=== PATIENT | female | born 1975 | race American Indian/Alaskan Native ===

== ENCOUNTER 2020-08-24 15:55 | Emergency (ER) | payer SELFPAY ==
[2020-08-24 16:16] VITALS: BP 126/87
--- NOTE | 2020-08-24 17:31 | XRay Report ---
LEFT ANKLE 3 VIEWS INDICATION / CLINICAL INFORMATION: Twisted ankle after following down some steps today with left ankl e pain/swelling. COMPARISON: None available. FINDINGS: BONES / JOINT(S): There is an acute, oblique comminuted fracture of the distal fibular metadiaphysis. There is mild posterior displacement of the distal fracture fragment. There is also an acute fractur e of the distal tibia extending from the metaphysis distally into the posterior malleolus. There is a pproximately 3 mm of cortical step-off at the tibiotalar joint space. No subluxation. SOFT TISSUES: Moderate soft tissue swelling, more prominent over the lateral malleolus. ADDITIONAL FINDINGS: None. IMPRESSION: Acute fractures of the distal tibia and fibula. There is extension of the tibial fracture into the posterior malleolus with cortical step-off involving the tibiotalar joint. Signer Name: Marco Taylor MD Signed: 08/24/2020 5:26 PM Workstation Name: [id number]
--- NOTE | 2020-08-24 17:59 | Emergency Department Report ---
ED General Adult HPI - General Chief complaint: Extremity Injury, Lower Stated complaint: ANKLE INJURY/FELL Time Seen by Provider: 08/24/20 17:27 Source: patient Mode of arrival: Ambulatory Limitations: No Limitations - History of Present Illness Initial comments: 45-year-old female patient presents emergency department complaints of traumatic left ankle pain starting today. Patient states she was walking down the stairs at her apartment complex when she accidentally fell down 5 steps and twisted her ankle. There was no resulting head injury or loss of consciousness. Patient has been unable to bear weight since the fall. No history of prior injuries to the left ankle. Denies headache, neck pain, back pain, hip pain, paresthesias, numbness, skin color changes. Denies all other complaints at this time. - Related Data Previous Rx's Medication Instructions Recorded Last Taken Type Naproxen 500 mg PO BID #20 tablet 08/24/20 Unknown Rx oxyCODONE /ACETAMINOPHEN [Percocet 1 tab PO Q6HR PRN #10 tablet 08/24/20 Unknown Rx 5/325] Allergies Allergy/AdvReac Type Severity Reaction Status Date / Time No Known Allergies Allergy Unverified 08/24/20 16:12 ED Review of Systems ROS: Stated complaint: ANKLE INJURY/FELL Other details as noted in HPI Other: GENERAL: Negative for fever. CARDIOVASCULAR: Negative for chest pain. PULMONARY: Negative for shortness of breath. GASTROINTESTINAL: Negative for abdominal pain. MUSCULOSKELETAL: Negative for back pain. NEUROLOGICAL: Negative for headache. INTEGUMENTARY: Negative for rash. ED Past Medical Hx - Past Medical History Previous Medical History?: No - Surgical History Additional Surgical History: C SECTION - Social History Smoking Status: Never Smoker - Medications Home Medications: Home Medications Medication Instructions Recorded Confirmed Last Taken Type Naproxen 500 mg PO BID #20 tablet 08/24/20 Unknown Rx oxyCODONE /ACETAMINOPHEN [Percocet 1 tab PO Q6HR PRN #10 tablet 08/24/20 Unknown Rx 5/325] ED Physical Exam - General Limitations: No Limitations - Other Other exam information: General: Awake, appropriately interactive, no acute distress. Neck: Supple. Full range of motion intact. Cardiovascular: Normal peripheral perfusion. Pulmonary: No respiratory distress. Patient is speaking normally without use of accessory muscles. Skin: No apparent rashes or lesions. Neurological: No facial asymmetry. Speech is clear. Follows commands. Patient is alert and oriented. Musculoskeletal: Tenderness to palpation throughout the left ankle with significant soft tissue swelling throughout. No tenderness at the base of the 5th metatarsal. No plantar ecchymosis. Distal neurovascular and motor/sensory function is intact. Psych: Cooperative. Appropriate mood and affect. ED Course Vital Signs 08/24/20 16:12 Temperature 98 F Pulse Rate 91 H Respiratory 20 Rate Blood Pressure 126/87 O2 Sat by Pulse 99 Oximetry - Orthopedic Splinting/Casting Injury #1 Side: left Lower Extremity Injury Location: ankle Lower Extremity Immobilizer: posterior splint Other Orthopedic Equipment: crutches Additional Comments: repeat neurovascular exam is intact ED Medical Decision Making - Radiology Data [facility] [address] [place] [address] XRay Report Signed Patient: CALVIN ROCHE MR#: [id number] : 1975 Acct:[id number] Age/Sex: 45 / F ADM Date: 08/24/20 Loc: ED Attending Dr: Ordering Physician: FLACO PAN MD Date of Service: 08/24/20 Procedure(s): XR ankle 3+V LT Accession Number(s): [id number] cc: FLACO PAN MD Fluoro Time In Minutes: LEFT ANKLE 3 VIEWS INDICATION / CLINICAL INFORMATION: Twisted ankle after following down some steps today with left ankle pain/swelling. COMPARISON: None available. FINDINGS: BONES / JOINT(S): There is an acute, oblique comminuted fracture of the distal fibular metadiaphysis. There is mild posterior displacement of the distal fracture fragment. There is also an acute fracture of the distal tibia extending from the metaphysis distally into the posterior malleolus. There is approximately 3 mm of cortical step-off at the tibiotalar joint space. No subluxation. SOFT TISSUES: Moderate soft tissue swelling, more prominent over the lateral malleolus. ADDITIONAL FINDINGS: None. IMPRESSION: Acute fractures of the distal tibia and fibula. There is extension of the tibial fracture into the posterior malleolus with cortical step-off involving the tibiotalar joint. Signer Name: Eric Taylor MD Signed: 08/24/2020 5:26 PM Workstation Name: [id number] Transcribed By: RT Dictated By: Eric Taylor MD Electronically Authenticated By: Eric Taylor MD Signed Date/Time: 08/24/201725 DD/ 23 TD/TT: - Medical Decision Making Differential diagnosis including but not limited to: sprain, strain, fracture, contusion, dislocation On reevaluation, patient remains stable. Repeat neurovascular exam remains intact. X-rays show acute oblique comminuted fracture of the distal fibular metaphysis with mild posterior displacement of the distal fracture fragment as well as an acute fracture of the distal tibia extending from the metaphysis into the posterior malleolus with approximately 3 mm of cortical step-off at the tibiotalar joint space. Case discussed with Dr. Krishnan, orthopedics, who recommended application of posterior ankle splint and close outpatient follow- up. No clinical indication for emergent reduction or operative intervention. Patient will be discharged home with crutches and appropriate analgesics. Patient expressed understanding and is agreeable to plan of care. RICE precautions discussed. Strict return precautions provided. Repeat exam is unremarkable and benign. History, exam, diagnostic testing, and current condition do not suggest worrisome pathology to warrant further testing, continued ED treatment, admission, or surgical evaluation at this point. Given the low probability of a significant medical illness, it would be more likely to result in harm than benefit to perform further testing at this stage. Discussed findings, presumptive diagnosis, need for follow-up and specific signs/symptoms that should prompt immediate return to the emergency department. Instructions were explained in detail to the patient in addition to giving written discharge information. Patient expressed understanding and was given the opportunity to ask questions, all of which were satisfactorily answered prior to discharge home. Case discussed with Dr. Cuevas, attending emergency physician, who agrees with diagnostic work-up/plan of care. Critical care attestation.: If time is entered above; I have spent that time in minutes in the direct care of this critically ill patient, excluding procedure time. ED Disposition Clinical Impression: Bimalleolar fracture Qualifiers: Encounter type: initial encounter Fracture type: closed Laterality: left Qualified Code(s): S82.842A - Displaced bimalleolar fracture of left lower leg, initial encounter for closed fracture Disposition: DC-01 TO HOME OR SELFCARE Is pt being admited?: No Does the pt Need Aspirin: No Condition: Stable Instructions: Ankle Fracture Additional Instructions: [place] Tylenol cada 4 horas segn sea necesario para el dolor. [place] naproxeno dos veces al da con alimentos segn sea necesario para el dolor. Si estos medicamentos no son suficientes para controlar dawkins dolor, tome Percocet con alimentos segn las indicaciones. No conduzca ni maneje maquinaria mientras est tomando leslie medicamento. No consuma alcohol mientras zachary leslie medicamento. Use la frula segn las indicaciones. Use muletas segn sea necesario. Rossi un seguimiento con el Dr. Krishnan, ortopedia, esta semana. Llame el shakira para programar jet martin. Consulte la informacin de referencia a continuacin. Regrese al departamento de emergencias de inmediato si los sntomas son nuevos o si empeoran. Especficamente, regrese al departamento de emergencias inmediatamente si aumenta el dolor, empeora la hinchazn, entumecimiento, hormigueo, cambios en el color de la piel o cualquier otra inquietud. Prescriptions: Naproxen 500 mg PO BID #20 tablet oxyCODONE /ACETAMINOPHEN [Percocet 5/325] 1 tab PO Q6HR PRN #10 tablet PRN Reason: Pain Referrals: ERIC KRISHNAN MD [Staff Physician] - 3-5 Days Time of Disposition: 18:56
== END 2020-08-24 20:00 | disposition home or self-care (01) ==
LOC: ED 15:55
DX: S82.842A Displaced bimalleolar fracture of left lower leg, initial encounter for closed fracture (principal); Z98.890 Other specified postprocedural states; Z79.899 Other long term (current) drug therapy; X50.1XXA Overexertion from prolonged static or awkward postures, initial encounter; Y93.89 Activity, other specified; Y92.89 Other specified places as the place of occurrence of the external cause; Y99.8 Other external cause status

== ENCOUNTER 2020-09-03 05:26 | Emergency (ER) | payer OTHER ==
[2020-09-03 06:14] LABS: Hematocrit 37.8 % (30.3-42.9); Hemoglobin 13.1 gm/dl (10.1-14.3); Mean Corpuscular HGB Conc 35 % (30-34); Mean Corpuscular Volume 90 fl (79-97); Platelet Count 329 K/mm3 (140-440); Red Blood Count 4.21 M/mm3 (3.65-5.03); Red Cell Distribution Width 13.4 % (13.2-15.2)
[2020-09-03 06:26] LABS: Blood Urea Nitrogen 13 mg/dL (7-17); Calcium 9.3 mg/dL (8.4-10.2); Hemolysis Index 3
[2020-09-03 06:27] LABS: Basophils % (Auto) 0.1 % (0.0-1.8); Eosinophils # (Auto) 0.1 K/mm3 (0.0-0.4); Eosinophils % (Auto) 0.5 % (0.0-4.3); Lymphocytes % (Auto) 16.6 % (13.4-35.0); Monocytes # (Auto) 0.5 K/mm3 (0.0-0.8); Monocytes % (Auto) 4.3 % (0.0-7.3)
[2020-09-03 06:32] LABS: BUN/Creatinine Ratio 26
--- NOTE | 2020-09-03 07:18 | Cat Scan Report ---
CT abdomen pelvis wo con INDICATION / CLINICAL INFORMATION: Patient complains of epigastric abdominal pain.. TECHNIQUE: Axial CT imaging of abdomen and pelvis was obtained without contrast. Coronal and sagittal reformatte d imaging obtained and reviewed. All CT scans at this location are performed using CT dose reduction for ALARA by means of automated exposure control. COMPARISON: None available. FINDINGS: CT abdomen without contrast demonstrates a small cyst in the left lobe of the liver. The liver is oth erwise unremarkable. Spleen, pancreas, kidneys, and adrenal glands are unremarkable. No intrarenal ca lculi or hydronephrosis present. Gallbladder is present and without visible abnormality. CT pelvis without contrast demonstrates mildly enlarged lobulated uterus most likely related to uteri ne fibroids. No adnexal mass. Small amount of free fluid is present in the posterior cul-de-sac. A no rmal appendix is present in the lower to mid abdomen centrally. Moderate amount of stool is present t hroughout the colon. GI tract is otherwise unremarkable. Visualized lung bases are clear. No acute significant osseous abnormality noted. IMPRESSION: 1. No acute finding within the abdomen or pelvis. 2. Moderate amount retained stool throughout the colon suggesting constipation. 3. Mildly enlarged lobulated uterus most likely due to uterine fibroids. Signer Name: Minda Rousseau MD Signed: 09/03/2020 7:13 AM Workstation Name: [id number]
[2020-09-03] MEDS ORDERED: LIDOCAINE VISCOUS 2% 15 ML ORAL LIQD PO ONE (07:46)
[2020-09-03] MEDS ORDERED: ALUM-MAG HYDROXIDE-SIMETHICONE 200-200-20MG/5ML ORAL LIQD 30 ML PO ONE (07:46)
--- NOTE | 2020-09-03 07:55 | Emergency Department Report ---
ED Abdominal Pain HPI - General Chief Complaint: Abdominal Pain Stated Complaint: ABD PAIN Time Seen by Provider: 09/03/20 07:32 Source: patient Mode of arrival: Ambulatory Limitations: Language Barrier - History of Present Illness Initial Comments: 45-year-old female presents to ED with complaint of abdominal pain since last night. Patient states pain is located in the epigastric area. She believes it is related to her gallstones. Patient states she was diagnosed with gallstones approximately 1 year ago. States pain is burning in nature. She believes it is because she ate very late last night. Patient reports nausea, no vomiting, no fever or diarrhea. Pain is nonradiating. MD Complaint: abdominal pain -: Last night Location: epigastric Radiation: none Migration to: no migration Severity: moderate Quality: burning Consistency: constant Improves With: nothing Worsens With: eating Associated Symptoms: nausea. denies: vomiting, diarrhea, fever, constipation - Related Data Previous Rx's Medication Instructions Recorded Last Taken Type oxyCODONE /ACETAMINOPHEN [Percocet 1 tab PO Q6HR PRN #10 tablet 08/24/20 Unknown Rx 5/325] Pantoprazole [Protonix TAB] 20 mg PO QDAY #30 tablet. 09/03/20 Unknown Rx Allergies Allergy/AdvReac Type Severity Reaction Status Date / Time No Known Allergies Allergy Verified 08/31/20 15:25 ED Review of Systems ROS: Stated complaint: ABD PAIN Other details as noted in HPI Comment: All other systems reviewed and negative Constitutional: denies: chills, fever Gastrointestinal: abdominal pain, nausea. denies: vomiting, diarrhea ED Past Medical Hx - Past Medical History Previous Medical History?: No Hx Hypertension: No Hx Headaches / Migraines: Yes (HX MIGRAINES - NOT RECENT) Additional medical history: galbladder - Surgical History Past Surgical History?: No Additional Surgical History: C SECTION - Social History Smoking Status: Never Smoker Substance Use Type: None - Medications Home Medications: Home Medications Medication Instructions Recorded Confirmed Last Taken Type oxyCODONE /ACETAMINOPHEN [Percocet 1 tab PO Q6HR PRN #10 tablet 08/24/20 08/31/20 Unknown Rx 5/325] Pantoprazole [Protonix TAB] 20 mg PO QDAY #30 tablet. 09/03/20 Unknown Rx ED Physical Exam - General Limitations: Language Barrier General appearance: alert, in no apparent distress - Head Head exam: Present: atraumatic, normocephalic - Eye Eye exam: Present: normal appearance, EOMI - ENT ENT exam: Present: mucous membranes moist - Neck Neck exam: Present: normal inspection - Respiratory Respiratory exam: Present: normal lung sounds bilaterally. Absent: respiratory distress - Cardiovascular Cardiovascular Exam: Present: regular rate, normal rhythm - GI/Abdominal GI/Abdominal exam: Present: soft, tenderness (Mild epigastric). Absent: distended - Extremities Exam Extremities exam: Present: normal inspection - Neurological Exam Neurological exam: Present: alert, oriented X3 - Psychiatric Psychiatric exam: Present: normal affect, normal mood - Skin Skin exam: Present: warm, dry, intact, normal color ED Course Vital Signs 09/03/20 09/03/20 05:53 09:06 Temperature 98.0 F Pulse Rate 82 79 Respiratory 16 Rate Blood Pressure 134/77 Blood Pressure 125/72 [Right] O2 Sat by Pulse 100 Oximetry ED Medical Decision Making - Lab Data Result diagrams: 09/03/20 05:55 09/03/20 05:55 - Radiology Data Radiology results: report reviewed, image reviewed - Medical Decision Making 45-year-old female, history of gallstones, presents to ED with epigastric pain. Labs are unremarkable. CT scan shows no evidence of gallstones. Constipation and fibroids present. Vital signs stable. Patient reports relief with GI cocktail that was given. Will discharge at this time. Outpatient follow-up with GI advised, return precautions given. - Differential Diagnosis Gallstones, pancreatitis, GERD Critical care attestation.: If time is entered above; I have spent that time in minutes in the direct care of this critically ill patient, excluding procedure time. ED Disposition Clinical Impression: Abdominal pain, epigastric Disposition: DC-01 TO HOME OR SELFCARE Is pt being admited?: No Condition: Stable Instructions: Heartburn, [id number], Food Choices for Gastroesophageal Reflux Disease, Adult, Abdominal Pain, Adult, [id number], Abdominal Pain (ED) Prescriptions: Pantoprazole [Protonix TAB] 20 mg PO QDAY #30 tablet. Referrals: PRIMARY CARE, [Primary Care Provider] - 3-5 Days [facility] [Provider Group] - 3-5 Days [facility] [Provider Group] - 3-5 Days Time of Disposition: 08:43 Print Language: FILIPINO
[2020-09-03 09:07] VITALS: BP 125/72
[2020-09-04] MEDS ORDERED: LIDOCAINE MPF (2%) 20 MG/1 ML VIAL 5 ML ONE (13:09)
[2020-09-04] MEDS ORDERED: propofoL 200 MG/20 ML VIAL IV ONE (13:09)
[2020-09-04] MEDS ORDERED: ONDANSETRON 4 MG/2 ML INJ ONE (14:10)
== END 2020-09-03 09:07 | disposition home or self-care (01) ==
LOC: ED 05:26
DX: R10.13 Epigastric pain (principal); G43.909 Migraine, unspecified, not intractable, without status migrainosus; Z98.890 Other specified postprocedural states; Z79.899 Other long term (current) drug therapy
CPT/HCPCS: 36415; 74176; 80048; 82150; 83690; 84703; 85007; 85025; J2405; J2704

== ENCOUNTER 2020-09-04 10:33 | Day surgery (SDC) | payer OTHER ==
[~2020-09-04 10:33] MED LIST: ACETAMINOPHEN 500 MG TAB PO SCH; CELECOXIB 200 MG CAP PO NR; GABAPENTIN 300 MG CAP PO NR; LACTATED RINGERS 1,000 ML IV SCH; MIDAZOLAM 2 MG/2 ML INJ IV NR; ceFAZolin/STERILE WATER 2 GM/20 ML SYRINGE IV NR
--- NOTE | 2020-09-04 11:24 | Anesthesia Day of Surgery ---
Anesthesia Day of Surgery - Day of Surgery Patient Examined: Yes Patient H&P Reviewed: Yes Patient is NPO: Yes
--- NOTE | 2020-09-04 11:24 | Anesthesia Consultation ---
Anesthesia Consult and Med Hx Date of service: 09/04/20 - Airway Anesthetic Teeth Evaluation: Good ROM Head & Neck: Adequate Mental/Hyoid Distance: Adequate Mallampati Class: Class III Intubation Access Assessment: Possibly Difficult - Pre-Operative Health Status ASA Pre-Surgery Classification: ASA1 Proposed Anesthetic Plan: General Nerve Block: adductor canal + poplitea - Pulmonary Hx Smoking: No Hx Respiratory Symptoms: No (COVID + 05/2020; resolved) Hx Sleep Apnea: No (LUCA PRE SCREEN NEGATIVE) - Cardiovascular System Hx Hypertension: No - Central Nervous System CVA: No - Endocrine Hx Renal Disease: No Hx Liver Disease: No Hx Insulin Dependent Diabetes: No Hx Non-Insulin Dependent Diabetes: No Hx Thyroid Disease: No - Other Systems Hx Obesity: Yes (BMI 32)
[2020-09-04] MEDS ORDERED: ONDANSETRON 4 MG/2 ML INJ IV PRN (11:30)
[2020-09-04] MEDS: fentaNYL 100 MCG/2 ML INJ IV PRN ×2 (11:43→12:43)
[2020-09-04] MEDS ORDERED: BUPIVACAINE/PF (0.25%) 2.5 MG/ML 30 ML VIAL INFILTRATI ONE (11:53)
[2020-09-04] MEDS ORDERED: SODIUM CHLORIDE 0.9% IRR 1,500 ML BOTTLE IR ONE (13:46)
--- NOTE | 2020-09-04 14:29 | Procedure Note ---
Date of procedure: 09/04/20 Pre-op diagnosis: Displaced left distal fibular fracture Post-op diagnosis: same Procedure: Open reduction internal fixation [left] distal fibula Procedure The patient was brought to the OR placing our table as a supine position following induction of ratio and anesthesia patient's [left] lower extremity was prepped and draped in the usual sterile manner a timeout procedure was done to identify the patient and the correct operative site The leg was exsanguinated followed by inflation of the pneumatic tourniquet to 300 mm Hg. a lateral incision was made along the distal fibula distally and down sharply through skin and subcutaneous down to periosteum the fracture site was identified following manipulation of the fracture fragments a bone clamp was used to stabilize. A 6-hole one third semitubular plate was was applied to the distal fibula under C-arm visualization the leg was stabilize with screws of various lengths including cortical and cancellus screws AP and lateral views were obtained on the table showed good reduction of the fracture and placement of the hardware next the wound was copiously irrigated with saline solution and was closed in a standard routine fashion for subcutaneous dressings were applied as well as a well-padded posterior mold patient tolerated the procedure complications Anesthesia: MAC, regional Surgeon: ERIC GARCIA Estimated blood loss: minimal Pathology: none Condition: stable Disposition: PACU
[2020-09-04] MEDS: HYDROmorphone 1 MG/1 ML INJ IV PRN ×2 (14:35→14:45)
--- NOTE | 2020-09-04 16:08 | Post Anesthesia Evaluation ---
- Post Anesthesia Evaluation Patient Participated: Yes Airway Patent: Yes Stable Respiratory Function: Yes Nausea/Vomiting: No Temp > 96.8F: Yes Pain Manageable: Yes Adequeate Hydration: Yes Anesthesia Complications: No Block Receding Appropriately: Yes
[2020-09-04 16:48] VITALS: BP 130/70
--- NOTE | 2020-09-08 07:51 | XRay Report ---
LEFT ANKLE 2 VIEWS INDICATION: LT ANKLE FX. COMPARISON: None. IMPRESSION: 0.1 minutes of fluoroscopy time was provided by radiology during open reduction and inte rnal fixation of a distal left fibular fracture. 2 fluoroscopic images are presented demonstrating i nternal fixation with good alignment. No joint pathology is appreciated. Please correlate with the pr ocedural report as needed. Signer Name: Rachid Thakkar Jr, MD Signed: 09/08/2020 7:47 AM Workstation Name: [id number]
== END 2020-09-04 15:50 | disposition home or self-care (01) ==
LOC: OR 10:33
PROVIDERS: ATTEND Orthopaedic Surgery
DX: S82.832A Other fracture of upper and lower end of left fibula, initial encounter for closed fracture (principal); Z20.822 Contact with and (suspected) exposure to COVID-19; Z79.899 Other long term (current) drug therapy; G43.909 Migraine, unspecified, not intractable, without status migrainosus; E66.9 Obesity, unspecified; Z98.51 Tubal ligation status; Z98.890 Other specified postprocedural states; Z68.32 Body mass index [BMI] 32.0-32.9, adult; X58.XXXA Exposure to other specified factors, initial encounter; Y93.89 Activity, other specified; Y92.89 Other specified places as the place of occurrence of the external cause; Y99.8 Other external cause status
CPT/HCPCS: 27792; 36415; 64450; 73600; 84703; C1713; J0690; J1170; J2250; J3010; J7120; U0003

== ENCOUNTER 2020-11-20 11:54 | Outpatient (CLI) | payer OTHER ==
--- NOTE | 2020-11-20 14:53 | XRay Report ---
LEFT ANKLE 3 VIEW(S) INDICATION / CLINICAL INFORMATION: LEFT ANKLE PAIN COMPARISON: Left ankle radiographs 08/24/2020 FINDINGS: BONES / JOINT(S): Postoperative changes from plate and screw fixation of the distal fibula are demons trated. There appears to be appropriate union of the fibular fracture fragments compared to reference from July 2020. There is a persistent fracture of the posterior malleolus, which is minimally displac ed. There is a persistent cortical step off at the posterior tibiotalar joint. If clinically warrante d, CT of the ankle could further evaluate for delayed union. SOFT TISSUES: No significant abnormality. ADDITIONAL FINDINGS: None. Signer Name: Quirino Robins MD Signed: 11/20/2020 2:49 PM Workstation Name: [id number]
== END 2020-11-20 11:55 | disposition home or self-care (01) ==
LOC: XRAY 11:54
PROVIDERS: ATTEND Orthopaedic Surgery
DX: S82.832A Other fracture of upper and lower end of left fibula, initial encounter for closed fracture (principal); X58.XXXA Exposure to other specified factors, initial encounter; Y93.89 Activity, other specified; Y92.89 Other specified places as the place of occurrence of the external cause; Y99.8 Other external cause status

== ENCOUNTER 2020-12-14 23:31 | Emergency (ER) | payer OTHER ==
[2020-12-15] MEDS ORDERED: ONDANSETRON 4 MG/2 ML INJ IV ONE (02:01)
[2020-12-15] MEDS ORDERED: MORPHINE 4 MG/1 ML INJ IV ONE (02:01)
[2020-12-15] MEDS ORDERED: SODIUM CHLORIDE 0.9% 1000 ML 1,000 ML IV ONE (02:01)
--- NOTE | 2020-12-15 02:05 | Emergency Department Report ---
ED Abdominal Pain HPI - General Chief Complaint: Abdominal Pain Stated Complaint: SHARP ABD PAINS Time Seen by Provider: 12/15/20 02:01 Source: patient Mode of arrival: Ambulatory Limitations: No Limitations - History of Present Illness Initial Comments: Patient is 45 years old female with no significant past medical history. Patient presented to the ER complaining of epigastric abdominal pain started approximately 4 hours ago associated with nausea and vomiting. Patient described her pain as sharp. Patient rated her pain as 5 out of 10. Patient denied any diarrhea. No fever or chills. Patient denied any chest pain or shortness of breath. MD Complaint: abdominal pain -: hour(s) (4) Location: RLQ, epigastric Radiation: none Migration to: no migration Severity scale (0 -10): 5 Quality: sharp - Related Data Previous Rx's Medication Instructions Recorded Last Taken Type oxyCODONE /ACETAMINOPHEN [Percocet 1 tab PO Q6HR PRN #10 tablet 08/24/20 Unknown Rx 5/325] Pantoprazole [Protonix TAB] 20 mg PO QDAY #30 tablet. 09/03/20 Unknown Rx oxyCODONE /ACETAMINOPHEN [Percocet 1 tab PO Q6HR PRN #28 tablet 09/04/20 Unknown Rx 5/325] oxyCODONE /ACETAMINOPHEN [Percocet 1 tab PO Q6HR PRN #30 tablet 09/04/20 Unknown Rx 5/325] Allergies Allergy/AdvReac Type Severity Reaction Status Date / Time No Known Allergies Allergy Verified 08/31/20 15:25 ED Review of Systems ROS: Stated complaint: SHARP ABD PAINS Other details as noted in HPI Comment: All other systems reviewed and negative Constitutional: denies: chills, fever Cardiovascular: denies: chest pain, palpitations Gastrointestinal: abdominal pain, nausea, vomiting. denies: diarrhea, constipation, hematemesis, melena, hematochezia Musculoskeletal: denies: back pain Neurological: denies: headache, weakness, numbness, paresthesias, confusion, abnormal gait ED Past Medical Hx - Past Medical History Previous Medical History?: Yes Hx Hypertension: No Hx Liver Disease: No Hx Renal Disease: No Hx Headaches / Migraines: Yes (HX MIGRAINES - NOT RECENT) Additional medical history: galbladder - Surgical History Past Surgical History?: Yes Additional Surgical History: C SECTION Left ankle - Social History Smoking Status: Never Smoker Substance Use Type: None - Medications Home Medications: Home Medications Medication Instructions Recorded Confirmed Last Taken Type oxyCODONE /ACETAMINOPHEN [Percocet 1 tab PO Q6HR PRN #10 tablet 08/24/20 06/0 10/14 Unknown Rx 5/325] Pantoprazole [Protonix TAB] 20 mg PO QDAY #30 tablet. 09/03/20 Unknown Rx oxyCODONE /ACETAMINOPHEN [Percocet 1 tab PO Q6HR PRN #28 tablet 09/04/20 Unknown Rx 5/325] oxyCODONE /ACETAMINOPHEN [Percocet 1 tab PO Q6HR PRN #30 tablet 09/04/20 Unknown Rx 5/325] ED Physical Exam - General Limitations: No Limitations General appearance: alert, in no apparent distress - Head Head exam: Present: atraumatic, normocephalic, normal inspection - ENT ENT exam: Present: mucous membranes dry - Neck Neck exam: Present: normal inspection, full ROM. Absent: tenderness, meningismus - Respiratory Respiratory exam: Present: normal lung sounds bilaterally - Cardiovascular Cardiovascular Exam: Present: regular rate, normal rhythm, normal heart sounds - GI/Abdominal GI/Abdominal exam: Present: soft, tenderness, normal bowel sounds. Absent: distended, guarding, rebound, rigid, organomegaly, mass, bruit, pulsatile mass, hernia - Extremities Exam Extremities exam: Present: normal inspection, full ROM, normal capillary refill. Absent: tenderness, pedal edema, joint swelling, calf tenderness - Back Exam Back exam: Present: normal inspection, full ROM. Absent: CVA tenderness (R), CVA tenderness (L) - Neurological Exam Neurological exam: Present: alert, oriented X3, CN II-XII intact, normal gait, reflexes normal. Absent: motor sensory deficit - Psychiatric Psychiatric exam: Present: normal mood - Skin Skin exam: Present: warm, intact, normal color ED Course Vital Signs 12/15/20 12/15/20 12/15/20 01:16 02:28 02:30 Temperature 98.1 F Pulse Rate 71 66 Respiratory 13 18 Rate Blood Pressure 122/75 128/70 Blood Pressure [Left] O2 Sat by Pulse 100 100 100 Oximetry 12/15/20 12/15/20 12/15/20 02:31 03:00 03:31 Temperature Pulse Rate 68 71 Respiratory 15 14 Rate Blood Pressure 128/70 115/66 Blood Pressure 128/70 [Left] O2 Sat by Pulse 100 100 100 Oximetry 12/15/20 12/15/20 12/15/20 04:01 04:31 05:01 Temperature Pulse Rate Respiratory Rate Blood Pressure 115/73 115/80 118/70 Blood Pressure [Left] O2 Sat by Pulse 99 99 100 Oximetry ED Medical Decision Making - Lab Data Result diagrams: 12/15/20 02:07 12/15/20 02:07 - Radiology Data Radiology results: report reviewed - Medical Decision Making Patient is 45 years old female with no significant past medical history. Patient presented to the ER complaining of epigastric abdominal pain started approximately 4 hours ago associated with nausea and vomiting. Patient descr ibed her pain as sharp. Patient rated her pain as 5 out of 10. Patient denied any diarrhea. No fever or chills. Patient denied any chest pain or shortness of breath. Patient received morphine and Zofran. Patient stated that she is feeling better. Labs reviewed and showed a leukocytosis of 14. CT abdomen and pelvis with IV contrast showed cholelithiasis with no evidence of acute cholecystitis. Patient given prescription for pain and advised to follow-up with a general surgeon in the next 2 to 3 days and to return to the ER if he develop any new symptoms. Critical care attestation.: If time is entered above; I have spent that time in minutes in the direct care of this critically ill patient, excluding procedure time. ED Disposition Clinical Impression: Acute abdominal pain, Cholelithiasis Disposition: 01 HOME / SELF CARE / HOMELESS Is pt being admited?: No Condition: Stable Instructions: Abdominal Pain (ED), Cholelithiasis, Abdominal Pain, Adult, [id number] Referrals: CATHERINE ZAVALA MD [Primary Care Provider] - 3-5 Days REINALDO DOMINIQUE MD [Staff Physician] - 3-5 Days
[2020-12-15 02:48] LABS: Basophils % (Auto) 0.2 % (0.0-1.8); Eosinophils % (Auto) 0.3 % (0.0-4.3); Hematocrit 39.9 % (30.3-42.9); Hemoglobin 13.6 gm/dl (10.1-14.3); Lymphocytes # (Auto) 1.8 K/mm3 (1.2-5.4); Lymphocytes % (Auto) 12.6 % (13.4-35.0); Mean Corpuscular HGB Conc 34 % (30-34); Mean Corpuscular Volume 90 fl (79-97); Monocytes # (Auto) 0.5 K/mm3 (0.0-0.8); Monocytes % (Auto) 3.9 % (0.0-7.3); Platelet Count 325 K/mm3 (140-440); Red Blood Count 4.45 M/mm3 (3.65-5.03); Red Cell Distribution Width 13.6 % (13.2-15.2)
[2020-12-15 02:58] LABS: Alanine Aminotransferase 67 units/L (7-56); Albumin 4.3 g/dL (3.9-5); Blood Urea Nitrogen 9 mg/dL (7-17); Calcium 9.1 mg/dL (8.4-10.2); Hemolysis Index 6
[2020-12-15 02:59] LABS: BUN/Creatinine Ratio 18; Bilirubin,Direct < 0.2 mg/dL (0-0.2)
[2020-12-15] MEDS ORDERED: PIPERACILLIN/TAZOBACTAM 3.375 3.375 GM/50 ML BAG IV ONE (03:45)
[2020-12-15 04:52] LABS: Bacteria,Urine 1+ /HPF (Negative); Bilirubin,Urine NEG (Negative); Blood,Urine LG (Negative); Color,Urine Yellow (Yellow); Protein,Urine <15 mg/dL mg/dL (Negative); Urobilinogen,Urine < 2.0 mg/dL (<2.0)
--- NOTE | 2020-12-15 06:10 | Cat Scan Report ---
CT abdomen pelvis w con INDICATION / CLINICAL INFORMATION: Epigastric abdominal pain with nausea and vomiting x 4 hours. TECHNIQUE: Axial CT images were obtained through the abdomen and pelvis after 100 cc of Omnipaque [address] scans at this location are performed using CT dose reduction for ALARA by means of automated exposure control. COMPARISON: 09/03/2020 FINDINGS: LOWER CHEST: No significant abnormality LIVER: Left hepatic cyst. GALLBLADDER/BILIARY TREE: Gallstones are present. No evidence of cholecystitis by CT. No biliary dila tation. PANCREAS: No significant abnormality SPLEEN: No significant abnormality ADRENALS: No significant abnormality KIDNEYS / URETER: No significant abnormality URINARY BLADDER: No significant abnormality REPRODUCTIVE ORGANS: Uterine fibroids. STOMACH / BOWEL: No significant abnormality. The appendix is normal in caliber. LYMPH NODES: No significant adenopathy. VASCULATURE: No significant abnormality. OTHER: No free air, free fluid, or focal fluid collection is identified. SKELETAL SYSTEM: No acute osseous findings. IMPRESSION: 1. No acute abnormality of the abdomen or pelvis. 2. Cholelithiasis without CT evidence of cholecystitis. 3. Other chronic and incidental findings as above. Signer Name: Kemar Tabares MD Signed: 12/15/2020 6:05 AM Workstation Name: [id number]
[2020-12-15 06:19] VITALS: BP 125/67
== END 2020-12-15 07:09 | disposition home or self-care (01) ==
LOC: ED 23:31
DX: K80.20 Calculus of gallbladder without cholecystitis without obstruction (principal)
CPT/HCPCS: 36415; 74177; 80048; 80076; 81001; 83690; 84703; 85025; 96361; 96365; 96375; 99284; J2270; J2405; J2543; J7030; Q9967

== ENCOUNTER 2021-01-19 12:16 | Day surgery (SDC) | payer OTHER ==
[2021-01-15 10:50] LABS: Hematocrit 42.1 % (30.3-42.9); Hemoglobin 13.7 gm/dl (10.1-14.3); Mean Corpuscular HGB Conc 33 % (30-34); Mean Corpuscular Volume 90 fl (79-97); Platelet Count 336 K/mm3 (140-440); Red Blood Count 4.69 M/mm3 (3.65-5.03); Red Cell Distribution Width 13.4 % (13.2-15.2)
[2021-01-15 11:11] LABS: Alanine Aminotransferase 205 units/L (7-56); Albumin 4.4 g/dL (3.9-5); BUN/Creatinine Ratio 17; Blood Urea Nitrogen 10 mg/dL (7-17); Calcium 9.6 mg/dL (8.4-10.2); Hemolysis Index 11
[~2021-01-19 12:16] MED LIST changes: -CELECOXIB 200 MG CAP PO NR; -GABAPENTIN 300 MG CAP PO NR; +SCOPOLAMINE TRANSDERMAL PATCH 72 HR TD NR; -ceFAZolin/STERILE WATER 2 GM/20 ML SYRINGE IV NR
[2021-01-19] MEDS ORDERED: ONDANSETRON 4 MG/2 ML INJ IV PRN (12:32)
[2021-01-19] MEDS ORDERED: HYDROmorphone 1 MG/1 ML INJ IV PRN (12:32)
[2021-01-19] MEDS ORDERED: oxyCODONE /ACETAMINOPHEN 5-325MG TAB PO PRN (12:32)
--- NOTE | 2021-01-19 12:33 | Anesthesia Day of Surgery ---
Anesthesia Day of Surgery - Day of Surgery Patient Examined: Yes Patient H&P Reviewed: Yes Patient is NPO: Yes
--- NOTE | 2021-01-19 12:33 | Anesthesia Consultation ---
Anesthesia Consult and Med Hx Date of service: 01/19/21 - Airway Anesthetic Teeth Evaluation: Good ROM Head & Neck: Adequate Mental/Hyoid Distance: Adequate Mallampati Class: Class II Intubation Access Assessment: Probably Good - Pre-Operative Health Status ASA Pre-Surgery Classification: ASA1 Proposed Anesthetic Plan: General - Pulmonary Hx Smoking: No Hx Respiratory Symptoms: No (COVID + 05/2020; resolved) - Cardiovascular System Hx Hypertension: No Hx Heart Attack/AMI: No - Central Nervous System CVA: No - Endocrine Hx Renal Disease: No Hx Liver Disease: No Hx Insulin Dependent Diabetes: No Hx Non-Insulin Dependent Diabetes: No Hx Thyroid Disease: No - Other Systems Hx Obesity: Yes (BMI 32) - Additional Comments Anesthesia Medical History Comments: No hx anesthetic complications.
[2021-01-19] MEDS ORDERED: propofoL 200 MG/20 ML VIAL IV ONE (12:50)
[2021-01-19] MEDS ORDERED: HYDROmorphone 1 MG/1 ML INJ ONE (12:50)
[2021-01-19] MEDS ORDERED: LIDOCAINE MPF (2%) 20 MG/1 ML VIAL 5 ML ONE (12:51)
[2021-01-19] MEDS ORDERED: ROCURONIUM 50 MG/5 ML INJ IV ONE (12:53)
[2021-01-19] MEDS ORDERED: LIDOCAINE (1%) 10 MG/1 ML VIAL 20 ML MDV ONE (13:20)
[2021-01-19] MEDS ORDERED: LIDOCAINE 1%/EPINEPHRINE 1:100,000 VIAL (20 ML) INFILTRATI ONE ×3 (13:20→13:35)
[2021-01-19] MEDS ORDERED: BUPIVACAINE/PF (0.5%) 5 MG/1 ML 30 ML VIAL INFILTRATI ONE ×3 (13:20→13:35)
[2021-01-19] MEDS ORDERED: LIDOCAINE (1%) 10 MG/1 ML VIAL 20 ML MDV INFILTRATI ONE (13:36)
[2021-01-19] MEDS ORDERED: ONDANSETRON 4 MG/2 ML INJ ONE (14:08)
[2021-01-19] MEDS ORDERED: dexAMETHasone 20 MG/5 ML VIAL ONE (14:08)
[2021-01-19] MEDS ORDERED: LACTATED RINGERS 1,000 ML ONE (15:26)
[2021-01-19] MEDS ORDERED: NEOSTIGMINE 10MG/10 ML INJ MDV ONE (15:32)
[2021-01-19] MEDS ORDERED: GLYCOPYRROLATE 0.4 MG/2 ML INJ ONE (15:32)
--- NOTE | 2021-01-19 15:48 | Short Stay Summary ---
Short Stay Documentation Date of service: 01/19/21 Narrative H&P: see pre-op h&p - History H&P: obtained from office Past Medical History: No medical history - Allergies and Medications Current Medications: Allergies No Known Allergies Allergy (Verified 01/13/21 12:00) Home Medications Medication Instructions Recorded Confirmed Last Taken Type Fluconazole [Diflucan TAB] 200 mg PO QDAY 01/13/21 01/13/21 Unknown History metroNIDAZOLE [Flagyl] 500 mg PO Q12HR 01/13/21 01/13/21 Unknown History Active Medications Acetaminophen (Acetaminophen 500 Mg Tab) 1,000 mg PO PREOP ROSARIO Last Admin: 01/19/21 12:30 Dose: 1,000 mg Documented by: Hydromorphone HCl (Hydromorphone 1 Mg/1 Ml Inj) 0.5 mg IV Q10MIN PRN PRN Reason: Pain , Severe (7-10) Stop: 01/20/21 12:31 Lactated Ringer's (Lactated Ringers) 1,000 mls @ 100 mls/hr IV DIRECT ROSARIO Stop: 01/19/21 23:59 Last Admin: 01/19/21 12:30 Dose: 100 mls/hr Documented by: Levofloxacin/Dextrose (Levaquin 500mg/100ml) 500 mg in 100 mls @ 100 mls/hr IV PREOP NR; Protocol Stop: 01/19/21 20:00 Midazolam HCl (Midazolam 2 Mg/2 Ml Inj) 2 mg IV PREOP NR Stop: 01/19/21 23:59 Last Admin: 01/19/21 12:30 Dose: 2 mg Documented by: Ondansetron HCl (Ondansetron 4 Mg/2 Ml Inj) 4 mg IV ONCE PRN PRN Reason: Nausea And Vomiting Oxycodone/Acetaminophen (Oxycodone /Acetaminophen 5-325mg Tab) 1 tab PO ONCE PRN PRN Reason: Pain, Moderate (4-6) Scopolamine (Scopolamine Transdermal Patch 72 Hr) 1 each TD PREOP NR Stop: 01/19/21 23:59 Last Admin: 01/19/21 12:30 Dose: 1 each Documented by: - Physical exam General appearance: no acute distress HEENT: Atraumatic, PERRLA Lungs: Normal air movement Heart: Regular rate Gastrointestinal: normal Extremities: no ischemia - Brief post op/procedure progress note Date of procedure: 01/19/21 Pre-op diagnosis: cholelithiasis symptomatic Post-op diagnosis: same Procedure: lap jm Anesthesia: GETA Surgeon: REINALDO DOMINIQUE Food Processing Scientist: TRACEY WALLER Estimated blood loss: minimal Pathology: list (gallbladder with contents) Specimen disposition: to lab Condition: stable - Hospital course Hospital course: discharged after uneventful lap mj - Disposition Condition at discharge: Good Disposition: 01 HOME / SELF CARE / HOMELESS - Discharge Diagnoses (1) Cholelithiases Status: Acute Qualifiers: Cholelithiasis location: gallbladder Cholecystitis presence: with cholecystitis Cholecystitis acuity: acute and chronic Biliary obstruction: without biliary obstruction Qualified Code(s): K80.12 - Calculus of gallbladder with acute and chronic cholecystitis without obstruction Short Stay Discharge Plan Follow up with: PRIMARY CAREMD [Primary Care Provider] - 7 Days
--- NOTE | 2021-01-19 16:14 | Operative Report ---
Operative Report Operative Report: Procedure Performed: Lap cholecystectomy Date of Service: 01/19/2021 Primary Surgeon: Vonnie Ruff MD Assisted by: Ania Hall DO Anesthesia: General Pre-Operative Diagnosis: cholelithiasis Post-Operative Diagnosis: Same Indications for Procedure: 45 year old female with symptomatic cholelithiasis. Her today for elective laparoscopic cholecystectomy for continued abdominal pain. Pt signed informed consent and expressed understanding of the risks and benefit. Description of Procedure(s): The patient was brought to the operating room and underwent general anesthesia after lower extremity SCD were placed. The abdomen was prepped and draped in the standard fashion. IV antibiotics were given and a time out was performed. Using a veress needle via a stab incision in the umbililcus, the abdomen was insuflated to a pressure of 15mmHg. Using optivew technique, a 5mm trocar was placed just superior and to the left of the umbilicus. There was no gross injury noted to any intra-abdominal structures. After which working trocars were placed under direct visualization. A 12 mm trocar was placed in the epigastrium, and two more 5 mm trocars were inserted in the right lateral sites. The gallbladder was located and grasped at the fundus and retracted up toward the patient's right shoulder. The infundibulum was grasped and retracted laterally. A window was made between the cystic artery and the cystic duct, clearly delineating the two structures and verifying the 'critical view'. These were clipped with a 5 mm clip registered dietitian and divided. The peritoneum was incised with hook cautery, and the gallbladder was taken from the liver bed, ensuring hemostatis. The endocatch bag was placed in the abdomen and the gallbladder was then removed from the abdomen. The liver bed was examined and the trocars removed under direct visualization. The insufflation was then terminated. The epigastric incision was closed with a O-vicryl suture using a suture passer device. The skin incisions were closed using 4-0 Monocryl sutures. All the wounds dressed with dermabond. The patient tolerated the procedure well, was extubated and taken to the recovery room in satisfactory condition. Finding(s): gallbladder with stones Intra-Operative Complications: none Specimens Removed: Gallbladder Estimated Blood Loss: <5ml Complications: none immediate
[2021-01-19] MEDS ORDERED: HYDROcodone/ACETAMINOPHEN 5-325 MG TAB ONE (16:34)
[2021-01-19] MEDS ORDERED: HYDROcodone/ACETAMINOPHEN 5-325 MG TAB PO PRN (16:35)
--- NOTE | 2021-01-19 16:52 | Post Anesthesia Evaluation ---
- Post Anesthesia Evaluation Patient Participated: Yes Airway Patent: Yes Stable Respiratory Function: Yes Nausea/Vomiting: No Temp > 96.8F: Yes Pain Manageable: Yes Adequeate Hydration: Yes Anesthesia Complications: No
[2021-01-19 18:40] VITALS: BP 131/77
== END 2021-01-19 12:17 | disposition home or self-care (01) ==
LOC: OR 12:16
PROVIDERS: ATTEND Surgery
DX: K80.10 Calculus of gallbladder with chronic cholecystitis without obstruction (principal); E66.9 Obesity, unspecified; Z79.899 Other long term (current) drug therapy; Z98.51 Tubal ligation status; Z98.890 Other specified postprocedural states; Z20.822 Contact with and (suspected) exposure to COVID-19; Z68.32 Body mass index [BMI] 32.0-32.9, adult
CPT/HCPCS: 36415; 47562; 80053; 84703; 85027; 88304; J1100; J1170; J1956; J2250; J2405; J2704; J2710; J7120; U0003

== ENCOUNTER 2021-01-24 19:32 | Observation (INO) | payer OTHER ==
[2021-01-24] MEDS ORDERED: ONDANSETRON 4 MG/2 ML INJ IV ONE (21:37)
[2021-01-24] MEDS ORDERED: MORPHINE 4 MG/1 ML INJ IV ONE ×2 (21:37→23:37)
--- NOTE | 2021-01-24 21:42 | Emergency Department Report ---
ED Abdominal Pain HPI - General Chief Complaint: Abdominal Pain Stated Complaint: ABD/BACK PAIN 6 DAYS POST GALLBLADDER REMOVAL PUI?: No Time Seen by Provider: 01/24/21 21:21 Source: patient Mode of arrival: Ambulatory Limitations: Language Barrier - History of Present Illness Initial Comments: Chief complaint: Abdominal pain HPI: This is a 45-year-old female who is 5 days status post cholecystectomy for cholelithiasis. She presents with severe 7 out of 10 sharp right upper quadrant pain rating to the back. Pain had been controlled with Percocet. Afternoon evening around 5 PM, the pain became worse. Pain is worse with movement. She has nausea. She denies fever. Operation performed by surgeon Dr. Speedy BURNHAM Complaint: abdominal pain -: Gradual, hour(s) (Severe over the past 4 and half hours since 5 PM) Location: RUQ Radiation: back Severity: severe Severity scale (0 -10): 7 Quality: sharp Consistency: constant Improves With: nothing Worsens With: movement Context: recent surgery/procedure (5 days status post cholecystectomy) Associated Symptoms: nausea - Related Data Home Medications Medication Instructions Recorded Confirmed Last Taken Fluconazole [Diflucan TAB] 200 mg PO QDAY 01/13/21 01/13/21 Unknown metroNIDAZOLE [Flagyl] 500 mg PO Q12HR 01/13/21 01/13/21 Unknown Allergies Allergy/AdvReac Type Severity Reaction Status Date / Time No Known Allergies Allergy Verified 01/13/21 12:00 ED Review of Systems ROS: Stated complaint: ABD/BACK PAIN 6 DAYS POST GALLBLADDER REMOVAL Other details as noted in HPI Comment: All other systems reviewed and negative Constitutional: denies: chills, fever, malaise Respiratory: denies: cough, shortness of breath Gastrointestinal: abdominal pain, nausea. denies: vomiting, diarrhea Musculoskeletal: back pain ED Past Medical Hx - Past Medical History Previous Medical History?: Yes Hx Hypertension: No Hx Heart Attack/AMI: No Hx Liver Disease: No Hx Renal Disease: No Hx Headaches / Migraines: Yes (MIGRAINES) Hx HIV: No Additional medical history: galbladder - Surgical History Past Surgical History?: Yes Hx Cholecystectomy: Yes Additional Surgical History: C SECTION Left ankle cholecystectomy - Family History Family history: diabetes, hypertension - Social History Smoking Status: Never Smoker Substance Use Type: None - Medications Home Medications: Home Medications Medication Instructions Recorded Confirmed Last Taken Type Fluconazole [Diflucan TAB] 200 mg PO QDAY 01/13/21 01/13/21 Unknown History metroNIDAZOLE [Flagyl] 500 mg PO Q12HR 01/13/21 01/13/21 Unknown History ED Physical Exam - General Limitations: Language Barrier (Family member the bedside provided Bangladeshi interpretation) General appearance: alert, in no apparent distress, other (Appears uncomfortable) - Head Head exam: Present: atraumatic, normocephalic - Eye Eye exam: Present: normal appearance - ENT ENT exam: Present: mucous membranes moist - Neck Neck exam: Present: normal inspection - Respiratory Respiratory exam: Present: normal lung sounds bilaterally. Absent: respiratory distress, wheezes, rales, rhonchi - Cardiovascular Cardiovascular Exam: Present: regular rate, normal rhythm, normal heart sounds. Absent: systolic murmur, diastolic murmur, rubs, gallop - GI/Abdominal GI/Abdominal exam: Present: soft, tenderness, guarding, normal bowel sounds, other (Soft abdomen right upper quadrant tenderness with voluntary guarding). Absent: distended, rebound - Extremities Exam Extremities exam: Present: normal inspection - Neurological Exam Neurological exam: Present: alert, oriented X3 - Psychiatric Psychiatric exam: Present: normal affect, normal mood - Skin Skin exam: Present: warm, dry, intact, normal color. Absent: rash ED Course Vital Signs 01/24/21 19:53 Temperature 98.2 F Pulse Rate 75 Respiratory 17 Rate Blood Pressure 137/86 [Left] O2 Sat by Pulse 100 Oximetry ED Medical Decision Making - Lab Data Result diagrams: 01/24/21 21:43 01/24/21 21:43 - Radiology Data Radiology results: report reviewed Patient Name: MOUNA ROCHE Gender: Female Date of : 1975 Referring Provider: EVANGELINA WORKMAN Organization: [facility] Accession Number: [id number] Requested Date: January 24, 2021 21:36 Report Status: Final Requested Procedure: 1 Procedure Description: CT abdomen pelvis w con Modality: CT Findings Reporting MD: Daniel Nix Dictation Time: January 24, 2021 22:18 Steam Shovelman: Not available Cloth Weigher Date: CT ABDOMEN AND PELVIS WITH IV CONTRAST INDICATION: severe pain s/p cholecystectomy. COMPARISON: CT 12/15/2020 TECHNIQUE: All CT scans at this facility use dose modulation, automated exposure control, iterative reconstruction or weight based dosing, when appropriate, to reduce radiation dose to as low as reasonably achievable. FINDINGS: Lung Bases: No significant abnormality. Skeletal System: No acute abnormality. ABDOMEN: Liver: No significant abnormality. Simple cysts are unchanged. Gallbladder: Removed. Bile Ducts: There is no intrahepatic biliary dilatation. The common duct is mildly dilated measuring 8 mm. No choledocholithiasis is seen.. Adrenals: No significant abnormality. Right Kidney: No significant abnormality. Left Kidney: No significant abnormality. Pancreas: No significant abnormality. Spleen: No significant abnormality. Upper GI tract: No significant abnormality. Lymph Nodes: No significant adenopathy. Aorta: No significant abnormality. Additional Findings: No significant abnormality. PELVIS: Colon: No acute abnormality. Urinary Bladder and Distal Ureters: No significant abnormality. Appendix: No significant abnormality. Lymph Nodes: No significant adenopathy. Additional Findings: Uterine fibroid is again noted at the fundus. There is trace free fluid in the pelvis. IMPRESSION: 1. There is mild dilatation of the common duct, this measures 8 mm. No radiodense stones are seen within the common duct. There is no intrahepatic biliary dilatation. [email or web address] [address] , [address] [place] [address] P [phone] F [phone] [facility] - Report exported on Mon, Jan 24, 2021 22:39:18 -0500 - Page 2 of 2 2. Incidental findings, as above. Signer Name: Daniel Nix MD Signed: 01/24/2021 10:18 PM Workstation Name: [id number] - Medical Decision Making This is a 45-year-old female who is 5 days status post cholecystectomy with worsening abdominal pain. Initially I was concerned for biloma. CT abdomen pelvis did not reveal fluid collection in the right upper quadrant. Concern for biliary obstruction possible choledocholithiasis versus biliary injury: markedly elevated AST ALT alk phos with elevated T bilirubin which has significantly increased over the past 5 days,. With CBD dilatation seen on CT scan I have consulted general surgeon Dr. Hall. I discussed case with Dr. Hall. She recommended MRCP and GI consultation. She will arrange general surgery consultation. She recommended n.p.o. status and hospitalist admission. Critical care attestation.: If time is entered above; I have spent that time in minutes in the direct care of this critically ill patient, excluding procedure time. ED Disposition Clinical Impression: Biliary obstruction, Postoperative abdominal pain, Status post laparoscopic cholecystectomy Disposition: 09 ADMITTED INPATIENT Is pt being admited?: Yes Does the pt Need Aspirin: No Condition: Stable Instructions: Abdominal Pain (ED)
[2021-01-24 21:55] LABS: Hematocrit 40.8 % (30.3-42.9); Hemoglobin 13.5 gm/dl (10.1-14.3); Mean Corpuscular HGB Conc 33 % (30-34); Mean Corpuscular Volume 89 fl (79-97); Platelet Count 350 K/mm3 (140-440); Red Blood Count 4.57 M/mm3 (3.65-5.03); Red Cell Distribution Width 13.8 % (13.2-15.2)
[2021-01-24] MEDS ORDERED: MORPHINE 2 MG/1 ML INJ ONE ×3 (21:59→23:51)
[2021-01-24 22:16] LABS: Albumin 4.5 g/dL (3.9-5); Blood Urea Nitrogen 12 mg/dL (7-17); Calcium 9.5 mg/dL (8.4-10.2); Hemolysis Index 14
[2021-01-24 22:17] LABS: BUN/Creatinine Ratio 24
[2021-01-24 22:34] LABS: Alanine Aminotransferase 1038 units/L (7-56)
--- NOTE | 2021-01-24 23:22 | Cat Scan Report ---
CT ABDOMEN AND PELVIS WITH IV CONTRAST INDICATION: severe pain s/p cholecystectomy. COMPARISON: CT 12/15/2020 TECHNIQUE: All CT scans at this facility use dose modulation, automated exposure control, iterative reconstructi on or weight based dosing, when appropriate, to reduce radiation dose to as low as reasonably achieva ble. FINDINGS: Lung Bases: No significant abnormality. Skeletal System: No acute abnormality. ABDOMEN: Liver: No significant abnormality. Simple cysts are unchanged. Gallbladder: Removed. Bile Ducts: There is no intrahepatic biliary dilatation. The common duct is mildly dilated measuring 8 mm. No choledocholithiasis is seen.. Adrenals: No significant abnormality. Right Kidney: No significant abnormality. Left Kidney: No significant abnormality. Pancreas: No significant abnormality. Spleen: No significant abnormality. Upper GI tract: No significant abnormality. Lymph Nodes: No significant adenopathy. Aorta: No significant abnormality. Additional Findings: No significant abnormality. PELVIS: Colon: No acute abnormality. Urinary Bladder and Distal Ureters: No significant abnormality. Appendix: No significant abnormality. Lymph Nodes: No significant adenopathy. Additional Findings: Uterine fibroid is again noted at the fundus. There is trace free fluid in the p manish. IMPRESSION: 1. There is mild dilatation of the common duct, this measures 8 mm. No radiodense stones are seen wi thin the common duct. There is no intrahepatic biliary dilatation. 2. Incidental findings, as above. Signer Name: Daniel Nix MD Signed: 01/24/2021 11:18 PM Workstation Name: [id number]
[2021-01-25] MEDS ORDERED: PIPERACIL/TAZOBACTA 4.5/NS 100 4.5 GM/100 ML VIAL IV ONE ×2 (00:37→11:00)
[2021-01-25] MEDS ORDERED: MORPHINE 2 MG/1 ML INJ IV PRN ×2 (01:23)
[2021-01-25] MEDS ORDERED: ACETAMINOPHEN 325 MG TAB PO PRN (01:23)
[2021-01-25] MEDS ORDERED: ONDANSETRON 4 MG/2 ML INJ IV PRN (01:23)
[2021-01-25] MEDS ORDERED: SODIUM CHLORIDE 0.9% 1000 ML 1,000 ML IV SCH (01:30)
--- NOTE | 2021-01-25 01:35 | History and Physical Report ---
History of Present Illness Date of examination: 01/25/21 Date of admission: 01/25/2021 Chief complaint: Abdominal pain History of present illness: 45-year-old female with status post laparoscopic cholecystectomy secondary to cholelithiasis about 5 days ago presents to the emergency room today complaining of abdominal pain. Terminal pain is said to be in the right upper abdomen and also in the epigastric region radiating to the back. She has been taking some Percocet with some improvement. However later in the evening pain has gotten worse and she decided to report to the emergency room. She has had some nausea but no vomiting. She denies any diarrhea, no hematuria or dysuria, no fever or chills, no chest pain or shortness of breath, no headache or dizziness. Work-up in the emergency room today, labs reveals to 2 hemoglobin bilirubin of 1.60, AST of 551 ALT 1038 alkaline phos 484. She had a mild leukocytosis of 11.6. CT of the abdomen and pelvis shows mild dilatation of the common bile duct measuring about 8 mm. There is no intrahepatic biliary dilatation General surgeon was immediately consulted by the ER physician. Recommendation was to place patient on empiric IV antibiotics and make patient n.p.o. Patient will be scheduled for MRCP and also request for gastroenterology evaluation . Past History Past Medical History: migraines Past Surgical History: cholecystectomy, , Other (Left ankle surgery) Social history: no significant social history Family history: no significant family history Medications and Allergies Allergies Allergy/AdvReac Type Severity Reaction Status Date / Time No Known Allergies Allergy Verified 01/13/21 12:00 Home Medications Medication Instructions Recorded Confirmed Last Taken Type Fluconazole [Diflucan TAB] 200 mg PO QDAY 01/13/21 01/13/21 Unknown History metroNIDAZOLE [Flagyl] 500 mg PO Q12HR 01/13/21 01/13/21 Unknown History Active Meds: Active Medications Acetaminophen (Acetaminophen 325 Mg Tab) 650 mg PO Q4H PRN PRN Reason: Pain MILD(1-3)/Fever >100.5/CRUZ Sodium Chloride (Nacl 0.9% 1000 Ml) 1,000 mls @ 125 mls/hr IV DIRECT ROSARIO Morphine Sulfate (Morphine 2 Mg/1 Ml Inj) 2 mg IV Q4H PRN PRN Reason: Pain, Moderate (4-6) Morphine Sulfate (Morphine 4 Mg/1 Ml Inj) 4 mg IV Q4H PRN PRN Reason: Pain , Severe (7-10) Ondansetron HCl (Ondansetron 4 Mg/2 Ml Inj) 4 mg IV Q8H PRN PRN Reason: Nausea And Vomiting Sodium Chloride (Sodium Chloride 0.9% 10 Ml Flush Syringe) 10 ml IV BID ROSARIO Sodium Chloride (Sodium Chloride 0.9% 10 Ml Flush Syringe) 10 ml IV PRN PRN PRN Reason: LINE FLUSH Review of Systems Constitutional: no fever, no chills Ears, nose, mouth and throat: no nasal congestion, no sore throat Cardiovascular: no chest pain, no palpitations Respiratory: no cough, no shortness of breath Gastrointestinal: abdominal pain, nausea, no vomiting, no diarrhea, no constipation Genitourinary Female: no pelvic pain, no flank pain, no dysuria, no hematuria Musculoskeletal: no neck pain, no low back pain Integumentary: no rash, no pruritis Neurological: no headaches, no confusion Psychiatric: no anxiety, no depression Endocrine: no polyphagia, no polydipsia, no polyuria, no nocturia Exam - Constitutional Vitals: Temp Pulse Resp BP Pulse Ox 98.2 F 75 17 137/86 100 01/24/21 19:53 01/24/21 19:53 01/24/21 19:53 01/24/21 19:53 01/24/21 19:53 General appearance: Present: no acute distress, well-nourished - EENT Eyes: Present: PERRL, EOM intact. Absent: scleral icterus ENT: hearing intact, clear oral mucosa, dentition normal - Neck Neck: Present: supple, normal ROM - Respiratory Respiratory effort: normal Respiratory: bilateral: CTA - Cardiovascular Rhythm: regular Heart Sounds: Present: S1 & S2. Absent: gallop, systolic murmur, diastolic murmur, rub, click - Extremities Extremities: no ischemia, pulses intact, pulses symmetrical, No edema, normal t emperature, normal color, Full ROM Peripheral Pulses: within normal limits - Abdominal General gastrointestinal: Present: soft, tender (Mild tenderness in the epigastric and right upper quadrant, no guarding and no rebound tenderness.), non-distended, normal bowel sounds, other (Scars of laparoscopic surgery intact, no obvious drainage). Absent: mass - Integumentary Integumentary: Present: clear, warm, dry, normal turgor. Absent: rash - Musculoskeletal Musculoskeletal: strength equal bilaterally - Psychiatric Psychiatric: appropriate mood/affect, intact judgment & insight, memory intact, cooperative - Neurologic Neurologic: CNII-XII intact, no focal deficits, moves all extremities Results - Labs CBC & Chem 7: 01/24/21 21:43 01/24/21 21:43 Labs: Abnormal lab results 01/24/21 01/24/21 Range/Units 21:43 21:43 WBC 11.6 H (4.5-11.0) K/mm3 Creatinine 0.5 L (0.6-1.2) mg/dL Glucose 123 H (65-100) mg/dL Total Bilirubin 1.60 H (0.1-1.2) mg/dL AST 551 H (5-40) units/L ALT 1038 H (7-56) units/L Alkaline Phosphatase 484 H (35-129) units/L Assessment and Plan - Patient Problems (1) Postoperative abdominal pain Current Visit: Yes Status: Acute Plan to address problem: Patient placed on analgesic medication. She has been made n.p.o. Patient to be followed by gastroenterology and general surgery. (2) Biliary obstruction Current Visit: Yes Status: Acute Plan to address problem: Patient being scheduled for MRCP. We await further evaluation and recommendation by gastroenterology. (3) Status post laparoscopic cholecystectomy Current Visit: Yes Status: Acute Plan to address problem: Patient is status post laparoscopic cholecystectomy about 5 days ago. Surgery done by Dr. Ruff Will await further evaluation by general surgery. (4) DVT prophylaxis Current Visit: Yes Status: Acute Plan to address problem: Patient placed on sequential compression device. (5) Full code status Current Visit: Yes Status: Acute Plan to address problem: Patient is full code.
[2021-01-25] MEDS ORDERED: PIPERACIL/TAZOBACTA 4.5/NS 100 4.5 GM/100 ML VIAL IV SCH (02:00)
[2021-01-25] MEDS ORDERED: SODIUM CHLORIDE 0.9% 1000 ML 1,000 ML ONE ×2 (04:04→10:45)
--- NOTE | 2021-01-25 10:10 | Magnetic Resonance Report ---
MRI ABDOMEN WITHOUT CONTRAST MRCP INDICATION / CLINICAL INFORMATION: Abdominal pain s/p cholecystectomy.CBD dilatation. TECHNIQUE: Multiplanar, multisequence series were obtained through the abdomen. Thin slab coronal and radial MRC P images. COMPARISON: CT abdomen pelvis with contrast dated 12/15/2020 and 01/24/2021 FINDINGS: LIVER: No significant abnormality. There are a few scattered simple cysts. There are 2 cysts in the i nferior left hepatic lobe measuring up to 1.4 cm. A 7 mm right hepatic lobe cyst is identified. No dawkins spicious liver mass. GALLBLADDER: Surgically removed. BILE DUCTS: The MRCP images are slightly limited secondary to patient motion. The common bile duct is slightly prominent measuring 6 mm in diameter. The images demonstrate an ill-defined filling defect in the distal common bile duct which could represent sludge or small stone. PANCREAS: No significant abnormality. Normal pancreatic duct on MRCP. SPLEEN: No significant abnormality. ADRENALS: No significant abnormality. RIGHT KIDNEY AND URETER: No significant abnormality. LEFT KIDNEY AND URETER: No significant abnormality. STOMACH AND VISUALIZED BOWEL: No significant abnormality. PERITONEUM: No free fluid. No free air. No fluid collection. LYMPH NODES: No significant adenopathy. AORTA and ARTERIES: No significant abnormality. IVC and VEINS: No significant abnormality. ADDITIONAL FINDINGS: None. SKELETAL SYSTEM: No significant abnormality. IMPRESSION: Slightly limited MRCP images but there does appear to be a filling defect in the distal common bile duct which could represent debris, sludge or small stone. The CBD measures 6 mm in diameter which has decreased slightly from the most recent CT in which the CBD measured 8 mm. Few scattered liver cysts. Signer Name: Rachid Thakkar Jr, MD Signed: 01/25/2021 10:06 AM Workstation Name: [id number]
--- NOTE | 2021-01-25 10:33 | Gastroenterology Consultation ---
History of Present Illness - Reason for Consult Consult date: 01/25/21 Gallstones Requesting physician: BERLIN COCHRAN - History of Present Illness The patient is a 45 yo female 5 days out from a CCY for gallstones. She did well for the first 4 days, but then returned with RUQ pain for the last 24 hours. She has no fevers, and a CT in the ER showed no leak. However, an MRCP does show a possible distal stone in the common bile duct. The patient, however, states that her pain has resolved, and she has no N/V/loss of appetite. Family hx gallbladder in her mother. No prior abdominal surgery. Past History Past Medical History: migraines Past Surgical History: cholecystectomy, , Other (Left ankle surgery) Social history: no significant social history. denies: alcohol abuse Family history: other (Mother-gallstones) Medications and Allergies Allergies Allergy/AdvReac Type Severity Reaction Status Date / Time No Known Allergies Allergy Verified 01/13/21 12:00 Home Medications Medication Instructions Recorded Confirmed Last Taken Type Oxycodone-Acetaminophen 10-300 300 mg PO Q4HR PRN 01/25/21 01/25/21 01/24/21 History Active Meds: Active Medications Acetaminophen (Acetaminophen 325 Mg Tab) 650 mg PO Q4H PRN PRN Reason: Pain MILD(1-3)/Fever >100.5/CRUZ Sodium Chloride (Nacl 0.9% 1000 Ml) 1,000 mls @ 125 mls/hr IV DIRECT ROSARIO Last Admin: 01/25/21 04:10 Dose: 125 mls/hr Documented by: Piperacillin Sod/Tazobactam Sod (Zosyn/Ns 4.5gm/100ml) 4.5 gm in 100 mls @ 200 mls/hr IV Q8H ROSARIO; Protocol Morphine Sulfate (Morphine 2 Mg/1 Ml Inj) 2 mg IV Q4H PRN PRN Reason: Pain, Moderate (4-6) Morphine Sulfate (Morphine 2 Mg/1 Ml Inj) 4 mg IV Q4H PRN PRN Reason: Pain , Severe (7-10) Ondansetron HCl (Ondansetron 4 Mg/2 Ml Inj) 4 mg IV Q8H PRN PRN Reason: Nausea And Vomiting Sodium Chloride (Sodium Chloride 0.9% 10 Ml Flush Syringe) 10 ml IV BID ROSARIO Sodium Chloride (Sodium Chloride 0.9% 10 Ml Flush Syringe) 10 ml IV PRN PRN PRN Reason: LINE FLUSH I HAVE REVIEWED/RECONCILED MEDICATIONS Review of Systems - Review of Systems All systems: negative (as noted in the HPI) Exam - Constitutional Vital Signs: Temp Pulse Resp BP Pulse Ox 98.2 F 77 22 115/63 98 01/24/21 19:53 01/25/21 05:01 01/25/21 05:01 01/25/21 05:01 01/25/21 05:01 General appearance: no acute distress - EENT Eyes: PERRL, EOM intact ENT: hearing intact, clear oral mucosa - Neck Neck: supple, normal ROM - Respiratory Respiratory effort: normal Respiratory: bilateral: CTA - Cardiovascular Rhythm: regular Heart Sounds: Present: S1 & S2 Extremities: no ischemia, No edema - Gastrointestinal General gastrointestinal: Present: soft, tender (Minimal RUQ tenderness), non- distended - Integumentary Integumentary: Present: clear, warm, dry - Neurologic Neurological: alert and oriented x3 - Labs CBC & Chem 7: 01/24/21 21:43 01/24/21 21:43 Lab Results: Laboratory Results - last 24 hr 01/24/21 01/24/21 01/24/21 21:43 21:43 21:43 WBC 11.6 H RBC 4.57 Hgb 13.5 Hct 40.8 MCV 89 MCH 30 MCHC 33 RDW 13.8 Plt Count 350 Sodium 140 Potassium 4.8 Chloride 102.2 Carbon Dioxide 23 Anion Gap 20 BUN 12 Creatinine 0.5 L Estimated GFR > 60 BUN/Creatinine Ratio 24 Glucose 123 H Calcium 9.5 Total Bilirubin 1.60 H AST 551 H ALT 1038 H Alkaline Phosphatase 484 H Total Protein 7.3 Albumin 4.5 Albumin/Globulin Ratio 1.6 Lipase 23 HCG, Qual Negative Assessment and Plan - Patient Problems (1) Choledocholithiasis Current Visit: Yes Status: Acute Plan to address problem: - The patient likely has choledocholithiasis based on MRCP and labs/history. - ERCP ordered for the patient. - Continue IV abx for now given her mildly elevated WBC. - NPO status.
[2021-01-25] MEDS ORDERED: SODIUM CHLORIDE 0.9% 100 ML ONE (10:45)
[2021-01-25] MEDS ORDERED: GLUCAGON (HUMAN RECOMBINANT) 1 MG/ML INJ ONE (10:45)
[2021-01-25] MEDS: PIPERACIL/TAZOBACTA 4.5/NS 100 4.5 GM/100 ML VIAL IV SCH ×2 (11:03→21:00)
[2021-01-25] MEDS ORDERED: LIDOCAINE MPF (2%) 20 MG/1 ML VIAL 5 ML ONE (11:17)
[2021-01-25] MEDS ORDERED: propofoL 200 MG/20 ML VIAL IV ONE ×2 (11:17→11:46)
[2021-01-25] MEDS ORDERED: KETAMINE/STERILE WATER 50 MG/ML SYRINGE ONE (11:17)
--- NOTE | 2021-01-25 11:30 | Anesthesia Day of Surgery ---
Anesthesia Day of Surgery - Day of Surgery Patient Examined: Yes Patient H&P Reviewed: Yes Patient is NPO: Yes
--- NOTE | 2021-01-25 11:30 | Anesthesia Consultation ---
Anesthesia Consult and Med Hx Date of service: 01/25/21 - Airway Anesthetic Teeth Evaluation: Good ROM Head & Neck: Adequate Mental/Hyoid Distance: Adequate Mallampati Class: Class I Intubation Access Assessment: Good - Pulmonary Exam CTA: Yes - Cardiac Exam Cardiac Exam: RRR - Pre-Operative Health Status ASA Pre-Surgery Classification: ASA2 Proposed Anesthetic Plan: MAC (no hx of anesthetic complications) - Pulmonary Hx Smoking: No Hx Asthma: No Hx Respiratory Symptoms: No (COVID + 05/2020; resolved) COPD: No Hx Pneumonia: No - Cardiovascular System Hx Hypertension: No Hx Heart Attack/AMI: No - Central Nervous System CVA: No Hx Psychiatric Problems: No - Endocrine Hx Renal Disease: No Hx End Stage Renal Disease: No Hx Liver Disease: No Hx Insulin Dependent Diabetes: No Hx Non-Insulin Dependent Diabetes: No Hx Thyroid Disease: No - Other Systems Hx Alcohol Use: No Hx Substance Use: No Hx Cancer: No Hx Obesity: Yes (BMI 32)
[2021-01-25] MEDS ORDERED: MIDAZOLAM 2 MG/2 ML INJ ONE (11:40)
--- NOTE | 2021-01-25 12:09 | Post Operative Note ---
Pre-op diagnosis: Abnl MRI Post-op diagnosis: other (Cholangitis) Findings: 1. Normal ampulla 2. Clips in RUQ c/w CCY 3. PD not injected or cannulated 4. CBD cannulated with Fusiontome/0.035 guidewire - Dilated to 8mm with distal filling defect - Medium sphincterotomy performed - 12mm balloon swept through x 3 with no stone removed, but moderate amount of sludge and purulent debris - Cholangiogram at end shows no residual stone or bile leak Procedure: ERCP with sphincterotomy and balloon sweep of CBD Anesthesia: MAC Surgeon: AUSTEN RINCON Estimated blood loss: minimal Pathology: none Specimen disposition: other (N/A) Condition: stable Disposition: floor (Recs: 1. Continue IV abx since pus present in CBD. 2. OK to advance to regular diet. 3. If LFTs are stable tomorrow, may discharge on PO abx x 5 days. 4. Avoid NSAIDs/start protonix x 3 days.)
--- NOTE | 2021-01-25 12:40 | Event Note ---
Date: 01/25/21 Went to see patient who was admitted overnight for abdominal pain. Patient was in her room she was getting ERCP. Per ERCP operative note, procedure was successful with sphincterotomy and balloon sweep of common bile duct. Cholangiogram showed no signs of bile leak or biliary obstruction. Will check on patient later when she returns to the room. Based on notes, imaging, and ERCP note, general surgery intervention is very unlikely or indicated.
--- NOTE | 2021-01-25 12:41 | Operative Report ---
DATE OF SURGERY: 01/25/2021 ENDOSCOPY DOCUMENT PROCEDURE PERFORMED: Endoscopic retrograde cholangiopancreatography with biliary sphincterotomy and balloon sweeping of the common bile duct. PREOPERATIVE DIAGNOSES: Abnormal liver enzymes, abnormal MRCP. POSTOPERATIVE DIAGNOSIS: Cholangitis. ENDOSCOPIST: Mani Sheppard MD INSTRUMENT: The Olympus video endoscope. MEDICATIONS: MAC anesthesia by [facility]esthesia Services. COMPLICATIONS: No apparent complications. ESTIMATED BLOOD LOSS: Minimal. SPECIMENS: None. IMPLANTS: None. ASSISTANTS: None. CONDITION AT COMPLETION: Stable. TECHNIQUE: The patient was informed of the risks and benefits of the procedure. She signed the informed consent to proceed. She was placed in the prone position. The above sedative medications were given. Her vital signs remained stable throughout the procedure. The instrument was advanced from the mouth to the ampulla under direct visualization. At that point, the bowel was insufflated. The ampulla was normal in shape and size. The common bile duct was cannulated using the Fusion sphincterotome and a 0.035 guidewire. The common bile duct was dilated to approximately 8 mm and there appeared to be a distal small filling defect. A medium-sized sphincterotomy was performed and a balloon was swept 3 times through the common hepatic and common bile duct. No stone was removed, but sludge and purulent debris was removed from the common bile duct. At the end of the procedure, the cholangiogram showed no evidence of obstruction nor of bile leak. The procedure was then terminated. FINDINGS: 1. Normal ampulla. 2. Clips present in the right upper quadrant consistent with cholecystectomy. 3. The pancreatic duct was not injected nor cannulated during this procedure. 4. Common bile duct was cannulated using a Fusion sphincterotome and a 0.035 guidewire. A. The common bile duct was dilated to 8 mm with a distal filling defect. B. Medium-sized sphincterotomy was performed. C. A 12 mm balloon was swept 3 times through the common hepatic and common bile duct without removal of the stone, but a moderate amount of sludge and purulent debris was removed. D. A cholangiogram at the end of procedure showed no residual stone or bile leak. RECOMMENDATIONS: 1. Continue IV antibiotics since pus was present in the common bile duct. 2. Okay to advance to regular diet. 3. If the liver enzymes are stable tomorrow, may discharge the patient on oral antibiotics for 5 days. 4. Avoid nonsteroidals and start Protonix for the next 3 days given the size of the sphincterotomy. TID: [id number] RECEIPT: [id number] АЛЕКСАНДР/EVELIN
--- NOTE | 2021-01-25 12:46 | Event Note ---
Date: 01/25/21 Patient seen after procedure. GI and GS note reviewed. Patient will need antibiotics x5 days. Likely can be discharged tomorrow if labs remain stable and able to tolerate diet.
--- NOTE | 2021-01-25 13:54 | Post Anesthesia Evaluation ---
- Post Anesthesia Evaluation Patient Participated: Yes Airway Patent: Yes Stable Respiratory Function: Yes Nausea/Vomiting: No Temp > 96.8F: Yes Pain Manageable: Yes Adequeate Hydration: Yes Anesthesia Complications: No Block Receding Appropriately: Not Applicable Patient on Ventilator: No
[2021-01-25] MEDS: PANTOPRAZOLE 40 MG TAB PO SCH (16:56)
[2021-01-26] MEDS: PIPERACIL/TAZOBACTA 4.5/NS 100 4.5 GM/100 ML VIAL IV SCH ×2 (00:16→10:38)
[2021-01-26 06:16] LABS: Basophils % (Auto) 0.2 % (0.0-1.8); Eosinophils # (Auto) 0.3 K/mm3 (0.0-0.4); Eosinophils % (Auto) 4.2 % (0.0-4.3); Hematocrit 38.6 % (30.3-42.9); Lymphocytes # (Auto) 2.5 K/mm3 (1.2-5.4); Lymphocytes % (Auto) 30.4 % (13.4-35.0); Mean Corpuscular HGB Conc 34 % (30-34); Mean Corpuscular Volume 91 fl (79-97); Monocytes # (Auto) 0.4 K/mm3 (0.0-0.8); Monocytes % (Auto) 4.6 % (0.0-7.3); Platelet Count 321 K/mm3 (140-440); Red Blood Count 4.27 M/mm3 (3.65-5.03); Red Cell Distribution Width 13.9 % (13.2-15.2)
[2021-01-26 06:22] LABS: INR 0.95 (0.87-1.13)
[2021-01-26 07:13] LABS: Albumin 3.7 g/dL (3.9-5); Blood Urea Nitrogen 8 mg/dL (7-17); Calcium 8.8 mg/dL (8.4-10.2); Hemolysis Index 13
[2021-01-26 07:14] LABS: BUN/Creatinine Ratio 16
[2021-01-26 07:28] LABS: Alanine Aminotransferase 738 units/L (7-56)
[2021-01-26] MEDS: PANTOPRAZOLE 40 MG TAB PO SCH (07:56)
[2021-01-26 12:00] VITALS: BP 103/59
[2021-01-26] MEDS ORDERED: PIPERACIL/TAZOBACTA 4.5/NS 100 4.5 GM/100 ML VIAL IV ONE (12:38)
--- NOTE | 2021-01-26 13:51 | Discharge Summary ---
Providers - Providers Date of Admission: 01/25/21 01:23 Date of discharge: 01/26/21 Attending physician: ONDINA MEHTA MD 01/25/21 00:08 Consult to Physician [CONS] Stat Comment: Consulting Provider: TRACEY WALLER Physician Instructions: Reason For Exam: biliary obstruction 01/25/21 06:07 Consult to Physician [CONS] Routine Comment: Consulting Provider: RICA NICHOLE Physician Instructions: Reason For Exam: Abdominal pain s/p cholecystectomy, CBD dilatation Primary care physician: BOWSTRING MAKER Hospitalization Reason for admission: Biliary obstruction Condition: Stable Pertinent studies: Reviewed. Procedures: ERCP with sphincterotomy Hospital course: Patient is a 45-year-old female with recent history of laparoscopic cholecystectomy secondary to cholelithiasis approximately 5 days prior to presentation who was admitted for acute cholelithiasis. Patient was started on IV antibiotic (Zosyn) and underwent ERCP with sphincterotomy and balloon sweep of common bile duct on 01/25/2021 revealing no signs of bile leak or biliary obstruction. The patient tolerated the procedure well and has been able to tolerate p.o. intake. Patient will be discharged with p.o. Flagyl 500 mg every 8 hours for a total course of 5 days. Patient expressed understanding and is ready to go home. Disposition: 01 HOME / SELF CARE / HOMELESS Final Discharge Diagnosis (Prints w/discharge instructions): Biliary obstruction; status post laparoscopic cholecystectomy; abdominal pain Time spent for discharge: 40 minutes Core Measure Documentation - Palliative Care Palliative Care/ Comfort Measures: Not Applicable - Core Measures Any of the following diagnoses?: none - VTE Discharge Requirements Deep Vein Thrombosis/Pulmonary Embolism Present on Admission: No Has pt received <5 days of overlap therapy or INR<2.0: No (Not indicated) Anticoagulant overlap therapy prescribed at discharge: No Contraindication No Overlap Therapy order at DC: Not Indicated - Acute IN Discharge Requirements Aspirin at discharge: No Reason for no aspirin on DC: Medical contraindication (Not indicated) BRAD/ARB for LVSD if EF <40%: Not Applicable Reason for no BRAD/ARB: Medical contraindication (Not indicated) Beta sissy at discharge: No Reason for no beta sissy on DC: Medical contraindication (Not indicated) Statin for LDL = or >100 mg/dl on DC: Not Applicable Reason for no statin on DC: Medical contraindication (Not indicated) - Heart Failure Discharge Requirements BRAD/ARB for LVSD if EF <40%: Not Applicable Reason for no BRAD/ARB: Medical contraindication (Not indicated) Beta sissy at discharge: No Reason for no beta sissy on DC: Medical contraindication (Not indicated) - Stroke Discharge Requirements Statin for LDL = or >70 mg/dl on DC: Not Applicable Reason for no statin on DC: Not Indicated Anticoag for atrial fib/atrial flutter: Not Applicable Reason for no anticoag for AF/F on DC: Not Indicated Antithrombotic for ischemic stroke: No Reason for no antithrombotic on DC: Not Indicated Exam - Constitutional Vitals: Temp Pulse Resp BP Pulse Ox 98.4 F 78 16 103/59 97 01/26/21 11:18 01/26/21 11:18 01/26/21 11:18 01/26/21 11:18 01/26/21 11:18 General appearance: Present: no acute distress, well-nourished - EENT Eyes: Present: PERRL, EOM intact ENT: hearing intact, clear oral mucosa, dentition normal - Neck Neck: Present: supple, normal ROM - Respiratory Respiratory effort: normal - Cardiovascular Rhythm: regular Heart Sounds: Present: S1 & S2 - Extremities Extremities: no ischemia, pulses intact, pulses symmetrical, No edema, normal temperature, normal color Peripheral Pulses: within normal limits - Abdominal General gastrointestinal: Present: soft, non-tender, non-distended, normal bowel sounds Female genitourinary: Present: deferred - Rectal Rectal Exam: deferred - Integumentary Integumentary: Present: clear, warm, dry - Musculoskeletal Musculoskeletal: strength equal bilaterally - Psychiatric Psychiatric: appropriate mood/affect, intact judgment & insight, memory intact, cooperative - Neurologic Neurologic: CNII-XII intact, moves all extremities - Allied Health Allied health notes reviewed: nursing Plan Activity: no restrictions Weight Bearing Status: Weight Bear as Tolerated Diet: regular Wound: open to air, keep clean and dry, per your surgeon's advice Care Plan Goals: Patient is discharging home safely. Assessment: Patient underwent ERCP with sphincterotomy for possible biliary obstruction. Patient has since been able to tolerate p.o. intake with minimal abdominal pain. The patient will continue p.o. Flagyl for 5day course. Patient safe for discharge. Follow up with: PRIMARY CARE, [Primary Care Provider] - 14 Days
--- NOTE | 2021-01-27 12:48 | Fluoroscopy Report ---
FLUOROSCOPY ERCP BILIARY DUCT HISTORY: Gallstone, choledocholithiasis FINDINGS: 1.3 minutes of fluoroscopy time was provided by radiology during ERCP by gastroenterology. 12 fluoroscopic images of the right upper quadrant are presented demonstrating balloon sweep of the c ommon bile duct to remove common bile duct stones. Please correlate with the procedural report as nee ded. Signer Name: Rachid Thakkar Jr, MD Signed: 01/27/2021 12:44 PM Workstation Name: [id number]
== END 2021-01-26 15:26 | disposition home or self-care (01) ==
LOC: ED 19:32 → 3A 01-25 01:23
PROVIDERS: ADMIT Internal Medicine Geriatric Medicine; ATTEND Student in an Organized Health Care Education/Training Program
DX: G89.18 Other acute postprocedural pain (principal); R10.9 Unspecified abdominal pain; K80.50 Calculus of bile duct without cholangitis or cholecystitis without obstruction; G43.909 Migraine, unspecified, not intractable, without status migrainosus; Z90.49 Acquired absence of other specified parts of digestive tract; Z98.890 Other specified postprocedural states; Z98.891 History of uterine scar from previous surgery
CPT/HCPCS: 36415; 43262; 74177; 74181; 74328; 80053; 83690; 84703; 85025; 85027; 85610; 87641; 96365; 96366; 96375; 99285; C1726; G0378; J2250; J2270; J2405; J2543; J2704; J3490; J7030; Q9967; J1610

== ENCOUNTER 2021-02-15 16:11 | Observation (INO) | payer OTHER ==
--- NOTE | 2021-02-15 16:37 | Event Note ---
ED Screening Note ED Screening Note: Language line used for Tajik interpretation She is a 45-year-old female who presents emergency room complaints of right- sided facial numbness, complete tongue numbness that began at 5 AM this morning She denies any vision changes, arm or leg numbness or weakness, vision changes No focal neuro deficit on exam no facial droop or asymmetry This initial assessment/diagnostic orders/clinical plan/treatment(s) is/are subject to change based on patients health status, clinical progression and re-assessment by fellow clinical providers in the ED. Further treatment and workup at subsequent clinical providers discretion. Patient/guardian urged not to elope from the ED as their condition may be serious if not clinically assessed and managed. Initial orders include: Code stroke initiated as she is having neuro symptoms less than 24 hours
[2021-02-15 16:55] LABS: Basophils % (Auto) 0.5 % (0.0-1.8); Eosinophils # (Auto) 0.3 K/mm3 (0.0-0.4); Eosinophils % (Auto) 3.1 % (0.0-4.3); Hematocrit 42.2 % (30.3-42.9); Hemoglobin 14.1 gm/dl (10.1-14.3); Lymphocytes # (Auto) 3.4 K/mm3 (1.2-5.4); Lymphocytes % (Auto) 36.1 % (13.4-35.0); Mean Corpuscular HGB Conc 33 % (30-34); Mean Corpuscular Volume 90 fl (79-97); Monocytes # (Auto) 0.5 K/mm3 (0.0-0.8); Monocytes % (Auto) 5.2 % (0.0-7.3); Platelet Count 375 K/mm3 (140-440); Red Blood Count 4.67 M/mm3 (3.65-5.03)
[2021-02-15 17:09] LABS: INR 0.84 (0.87-1.13)
[2021-02-15 17:10] LABS: Partial Thromboplastin Time 26.4 Sec. (24.2-36.6); Thrombin Time 15.9 Sec. (15.1-19.6)
[2021-02-15 17:18] LABS: Creatine Kinase MB < 1.0 ng/mL (0.0-4.0)
--- NOTE | 2021-02-15 17:34 | Emergency Department Report ---
ED Neuro Deficit HPI - General Chief Complaint: Neuro Symptoms/Deficit Stated Complaint: NEURO Time Seen by Provider: 02/15/21 16:40 Source: patient Mode of arrival: Ambulatory Limitations: Language Barrier - History of Present Illness Initial Comments: [facility] Consult Note # Demographics Consult Type: Acute Stroke Level 2 (4.5-24 hrs) Patient Location: Emergency Room First Name: Tina Last Name: Reggie Date of : 1975 Age: 45 Gender: Female Facility: [facility] Time of Initial Page ( Time): 02/15/2021, 16:49 Time of Return Call ( Time): 02/15/2021, 16:50 # HPI Chief Complaint: headache numbness History: Per patient's daughter at bedside (who also helped translate as patient spoke Slovak), the patient reportedly felt numbness on the right side of her face & tongue, & woke up with headache. She went to sleep last night at 11pm, & woke up at 5am. Last Known Normal: I have collected independent history specific to time last normal or last known well. We have collaborated with the provider and at this time, we have the most current timeline with the information that is available. 11pm Duration: constant hours Associated Symptoms: no double vision headache Quality: numbness # Scores Time of exam and NIHSS (): 02/15/2021, 16:53 Level of Consciousness 1a: [0] = Alert; keenly responsive LOC Questions 1b: [0] = Answers both questions correctly LOC Commands 1c: [0] = Performs both tasks correctly Best Gaze 2: [0] = Normal Visual 3: [0] = No visual loss Facial Palsy 4: [0] = Normal symmetrical movements Motor Arm Left 5a: [0] = No drift Motor Arm Right 5b: [0] = No drift Motor Leg Left 6a: [0] = No drift Motor Leg Right 6b: [0] = No drift Limb Ataxia 7: [0] = Absent Sensory 8: [0] = Normal Best Language 9: [0] = No aphasia Dysarthria 10: [0] = Normal Extinction and Inattention 11: [0] = No abnormality NIHSS Total: 0 Modified Nanda Scale (mRS) pre-stroke: [0] = No Symptoms Modified Chase Scale total: 0 VAN Screening: Negative # Exam Vitals: vital signs reviewed 98.4 SBP: 128 DBP: 80 Mental Status: awake alert and oriented x 3 follows commands Sensory: normal sensation Objective numbness not reported on exam # ROS Constitutional: no fever Pulmonary: no shortness of breath Cardiovascular: no chest pain # PMH-FH-SH Past Medical History: migraine Social History: non-smoker non-drinker no drugs # Data Time Head CT personally read by me (Eastern Time): 02/15/2021, 16:[address]: no bleed preliminarily reviewed by me, please refer to radiology read for official reading # Assessment Impression: Ischemic Stroke (Acute) Migraine (Complex) Persistent right-sided numbness - ischemic stroke versus migraine # Plan Thrombolytic/Intervention: NOT IV Thrombolysis or IA Intervention candidate Thrombolytic Exclusion (< 3 hour window): NIHSS = 0 Thrombolytic Exclusion: > 4.5 hours Target Blood Pressure: SBP < 220 Imaging: (urgency: STAT): CT Angiogram Head and CT Angiogram Neck Imaging: (urgency: routine): MRI Brain without contrast Therapy/Evaluation: NPO until swallow evaluation PT/OT evaluation Medication: migraine cocktail: Toradol 30 mg IV + Benadryl 25 mg IV + antiemetic IV Other: would not pursue stroke work-up if MRI is negative I have discussed my recommendations with the referring provider Disposition: admit - Related Data Home Medications: Previous Rx's Medication Instructions Recorded Last Taken Type Ondansetron HCl [Zofran] 4 mg PO Q8H PRN #30 tablet 01/26/21 Unknown Rx metroNIDAZOLE [Flagyl] 500 mg PO Q8HR #12 tablet 01/26/21 Unknown Rx Allergies/Adverse Reactions: Allergies Allergy/AdvReac Type Severity Reaction Status Date / Time No Known Allergies Allergy Verified 01/13/21 12:00 ED Review of Systems ROS: Stated complaint: NEURO Other details as noted in HPI ED Past Medical Hx - Past Medical History Hx Hypertension: No Hx Heart Attack/AMI: No Hx Congestive Heart Failure: No Hx Diabetes: No Hx Liver Disease: No Hx Renal Disease: No Hx Headaches / Migraines: Yes (MIGRAINES) Hx Asthma: No Hx COPD: No Hx HIV: No Additional medical history: galbladder - Surgical History Hx Cholecystectomy: Yes Additional Surgical History: C SECTION Left ankle cholecystectomy - Social History Smoking Status: Never Smoker - Medications Home Medications: Home Medications Medication Instructions Recorded Confirmed Last Taken Type Ondansetron HCl [Zofran] 4 mg PO Q8H PRN #30 tablet 01/26/21 Unknown Rx metroNIDAZOLE [Flagyl] 500 mg PO Q8HR #12 tablet 01/26/21 Unknown Rx ED Neuro Physical Exam - General Limitations: Language Barrier Suspected Stroke: Yes - NIHSS Assessment Interval: Baseline 1a. Level of Consciousness: alert/keenly responsive 1b. LOC Questions: answers both correctly 1c. LOC Commands: performs tasks correctly 2. Best Gaze: normal 3. Visual: no visual loss 4. Facial Palsy: normal symmetrical movement 5b. Motor Arm Right: no drift 5a. Motor Arm Left: no drift 6a. Motor Leg Left: no drift 6b. Motor Leg Right: no drift 7. Limb Ataxia: absent 8. Sensory: normal 9. Best Language: no aphasia 10. Dysarthria: normal 11. Extinction/Inattention: no abnormality (See BSL note NIHSS exam.) Total Score: 0 Stroke Severity: No Stroke Symptoms ED Course Vital Signs 02/15/21 16:17 Temperature 98.4 F Pulse Rate 77 Respiratory 16 Rate Blood Pressure 128/80 [Left] O2 Sat by Pulse 97 Oximetry - Lab Data Result diagrams: 02/15/21 16:46 Lab Results 02/15/21 02/15/21 02/15/21 Range/Units 16:46 16:46 16:46 WBC 9.4 (4.5-11.0) K/mm3 RBC 4.67 (3.65-5.03) M/mm3 Hgb 14.1 (10.1-14.3) gm/dl Hct 42.2 (30.3-42.9) % MCV 90 (79-97) fl MCH 30 (28-32) pg MCHC 33 (30-34) % RDW 14.0 (13.2-15.2) % Plt Count 375 (140-440) K/mm3 Lymph % (Auto) 36.1 H (13.4-35.0) % [place] % (Auto) 5.2 (0.0-7.3) % Eos % (Auto) 3.1 (0.0-4.3) % Baso % (Auto) 0.5 (0.0-1.8) % Lymph # (Auto) 3.4 (1.2-5.4) K/mm3 [place] # (Auto) 0.5 (0.0-0.8) K/mm3 Eos # (Auto) 0.3 (0.0-0.4) K/mm3 Baso # (Auto) 0.0 (0.0-0.1) K/mm3 Seg Neutrophils % 55.1 (40.0-70.0) % Seg Neutrophils # 5.2 (1.8-7.7) K/mm3 PT 12.5 (12.2-14.9) Sec. INR 0.84 L (0.87-1.13) APTT 26.4 (24.2-36.6) Sec. Thrombin Time 15.9 (15.1-19.6) Sec. Total Creatine Kinase 54 (30-135) units/L CK-MB (CK-2) < 1.0 (0.0-4.0) ng/mL CK-MB (CK-2) Rel Index 1.8 (0-4) Troponin T < 0.010 (0.00-0.029) ng/mL Critical care attestation.: If time is entered above; I have spent that time in minutes in the direct care o f this critically ill patient, excluding procedure time. ED Disposition Clinical Impression: Numbness Disposition: 09 ADMITTED INPATIENT Is pt being admited?: Yes Condition: Stable
--- NOTE | 2021-02-15 17:42 | Cat Scan Report ---
CT head/brain wo con INDICATION / CLINICAL INFORMATION: 45 years Female; Stroke symptoms. TECHNIQUE: Routine CT head without contrast. All CT scans at this location are performed using CT dos e reduction for ALARA by means of automated exposure control. COMPARISON: None. FINDINGS: The brain parenchyma demonstrate appropriate attenuation. The ventricular system is within normal sanchez its in size and configuration. There is no CT evidence of acute intracranial hemorrhage or significan t mass effect. ORBITS: No significant abnormality of visualized orbits. SINUSES / MASTOIDS: No significant abnormality in the visualized paranasal sinuses or mastoid air bobby ls. CRANIOCERVICAL JUNCTION: No significant abnormality. ADDITIONAL FINDINGS: None. IMPRESSION: 1. There is no CT evidence of acute intracranial process. Signer Name: Ken Plata MD Signed: 02/15/2021 5:37 PM Workstation Name: [id number]
--- NOTE | 2021-02-15 18:15 | Emergency Department Report ---
ED Neuro Deficit HPI - General Chief Complaint: Neuro Symptoms/Deficit Stated Complaint: NEURO Time Seen by Provider: 02/15/21 16:40 Source: patient Mode of arrival: Ambulatory Limitations: Language Barrier - History of Present Illness Initial Comments: Patient is 45 years old female with no significant past medical history except for migraine. Patient brought to the emergency room by her daughter for evaluation of right face and tongue numbness that noticed this morning when she woke up. Patient stated that she went to bed last night around 11 AM in her normal status. Stroke protocol immediately initiated and patient moved to CT for stat CT brain without contrast. Stroke neurology immediately consulted and patient examined by Dr. Fallon. Patient is not a TPA candidate as the time of onset is more than 4.5hour. -: Sudden, unknown Last Observed Normal: 23:00 Location: right face Presenting Symptoms: Present: Facial Droop/Numbness History of same: No Place: home Associated Symptoms: denies other symptoms - Related Data Home Medications: Previous Rx's Medication Instructions Recorded Last Taken Type Ondansetron HCl [Zofran] 4 mg PO Q8H PRN #30 tablet 01/26/21 Unknown Rx metroNIDAZOLE [Flagyl] 500 mg PO Q8HR #12 tablet 01/26/21 Unknown Rx Allergies/Adverse Reactions: Allergies Allergy/AdvReac Type Severity Reaction Status Date / Time No Known Allergies Allergy Verified 01/13/21 12:00 ED Review of Systems ROS: Stated complaint: NEURO Other details as noted in HPI Comment: All other systems reviewed and negative Constitutional: denies: chills, fever Respiratory: denies: cough, shortness of breath, SOB with exertion, SOB at rest Cardiovascular: denies: chest pain, palpitations Gastrointestinal: denies: abdominal pain, nausea, vomiting, diarrhea Musculoskeletal: denies: back pain Neurological: headache, numbness. denies: weakness, paresthesias, confusion, abnormal gait ED Past Medical Hx - Past Medical History Hx Hypertension: No Hx Heart Attack/AMI: No Hx Congestive Heart Failure: No Hx Diabetes: No Hx Liver Disease: No Hx Renal Disease: No Hx Headaches / Migraines: Yes (MIGRAINES) Hx Asthma: No Hx COPD: No Hx HIV: No Additional medical history: galbladder - Surgical History Hx Cholecystectomy: Yes Additional Surgical History: C SECTION Left ankle cholecystectomy - Social History Smoking Status: Never Smoker - Medications Home Medications: Home Medications Medication Instructions Recorded Confirmed Last Taken Type Ondansetron HCl [Zofran] 4 mg PO Q8H PRN #30 tablet 01/26/21 Unknown Rx metroNIDAZOLE [Flagyl] 500 mg PO Q8HR #12 tablet 01/26/21 Unknown Rx ED Neuro Physical Exam - General Limitations: Language Barrier General appearance: alert, in no apparent distress Suspected Stroke: Yes - Head Head exam: Present: atraumatic, normocephalic, normal inspection - Eye Eye exam: Present: normal appearance - ENT ENT exam: Present: normal exam, normal orophraynx, mucous membranes moist - Neck Neck exam: Present: normal inspection, full ROM. Absent: tenderness, meningismus - Respiratory Respiratory exam: Present: normal lung sounds bilaterally - Cardiovascular Cardiovascular Exam: Present: regular rate, normal rhythm, normal heart sounds - GI/Abdominal GI/Abdominal exam: Present: soft, normal bowel sounds. Absent: distended, tenderness, guarding, rebound, rigid, organomegaly, mass, bruit, pulsatile mass, hernia - Extremities Exam Extremities exam: Present: normal inspection, full ROM, normal capillary refill. Absent: tenderness, pedal edema, joint swelling, calf tenderness - Back Exam Back exam: Present: normal inspection, full ROM. Absent: CVA tenderness (R), CVA tenderness (L) - Neurological Exam Neurological exam: Present: alert, oriented X3, CN II-XII intact, normal gait, reflexes normal. Absent: motor sensory deficit - NIHSS Assessment Interval: Baseline 1a. Level of Consciousness: alert/keenly responsive 1b. LOC Questions: answers both correctly 1c. LOC Commands: performs tasks correctly 2. Best Gaze: normal 3. Visual: no visual loss 4. Facial Palsy: normal symmetrical movement 5b. Motor Arm Right: no drift 5a. Motor Arm Left: no drift 6a. Motor Leg Left: no drift 6b. Motor Leg Right: no drift 7. Limb Ataxia: absent 8. Sensory: normal 9. Best Language: no aphasia 10. Dysarthria: normal 11. Extinction/Inattention: no abnormality Total Score: 0 Stroke Severity: No Stroke Symptoms - Psychiatric Psychiatric exam: Present: normal mood, anxious. Absent: homicidal ideation, suicidal ideation - Skin Skin exam: Present: warm, intact, normal color ED Course Vital Signs 02/15/21 02/15/21 02/15/21 16:17 16:57 17:01 Temperature 98.4 F Pulse Rate 77 Respiratory 16 Rate Blood Pressure 137/75 Blood Pressure 128/80 [Left] O2 Sat by Pulse 97 100 99 Oximetry 02/15/21 02/15/21 02/15/21 17:15 18:18 19:10 Temperature 98.6 F Pulse Rate 72 Respiratory 16 14 Rate Blood Pressure 140/74 Blood Pressure 163/71 [Left] O2 Sat by Pulse 100 98 98 Oximetry 02/15/21 02/15/21 02/15/21 19:15 19:31 19:45 Temperature Pulse Rate 66 71 73 Respiratory 16 11 L 11 L Rate Blood Pressure 144/77 130/70 126/79 Blood Pressure [Left] O2 Sat by Pulse 100 99 99 Oximetry 02/15/21 02/15/21 02/15/21 20:01 20:15 20:31 Temperature Pulse Rate 76 74 76 Respiratory 19 18 16 Rate Blood Pressure 121/71 127/66 127/69 Blood Pressure [Left] O2 Sat by Pulse 99 98 98 Oximetry 02/15/21 02/15/21 02/15/21 20:45 21:05 21:15 Temperature Pulse Rate 71 73 63 Respiratory 14 25 H 14 Rate Blood Pressure 128/68 Blood Pressure [Left] O2 Sat by Pulse 97 100 100 Oximetry 02/15/21 21:31 Temperature Pulse Rate 71 Respiratory 18 Rate Blood Pressure Blood Pressure [Left] O2 Sat by Pulse 98 Oximetry - Lab Data Result diagrams: 02/15/21 16:46 02/15/21 19:59 Lab Results 02/15/21 02/15/21 02/15/21 Range/Units 16:46 16:46 16:46 WBC 9.4 (4.5-11.0) K/mm3 RBC 4.67 (3.65-5.03) M/mm3 Hgb 14.1 (10.1-14.3) gm/dl Hct 42.2 (30.3-42.9) % MCV 90 (79-97) fl MCH 30 (28-32) pg MCHC 33 (30-34) % RDW 14.0 (13.2-15.2) % Plt Count 375 (140-440) K/mm3 Lymph % (Auto) 36.1 H (13.4-35.0) % [place] % (Auto) 5.2 (0.0-7.3) % Eos % (Auto) 3.1 (0.0-4.3) % Baso % (Auto) 0.5 (0.0-1.8) % Lymph # (Auto) 3.4 (1.2-5.4) K/mm3 [place] # (Auto) 0.5 (0.0-0.8) K/mm3 Eos # (Auto) 0.3 (0.0-0.4) K/mm3 Baso # (Auto) 0.0 (0.0-0.1) K/mm3 Seg Neutrophils % 55.1 (40.0-70.0) % Seg Neutrophils # 5.2 (1.8-7.7) K/mm3 PT 12.5 (12.2-14.9) Sec. INR 0.84 L (0.87-1.13) APTT 26.4 (24.2-36.6) Sec. Thrombin Time 15.9 (15.1-19.6) Sec. Sodium (137-145) mmol/L Potassium (3.6-5.0) mmol/L Chloride (98-107) mmol/L Carbon Dioxide (22-30) mmol/L Anion Gap mmol/L BUN (7-17) mg/dL Creatinine (0.6-1.2) mg/dL Estimated GFR ml/min BUN/Creatinine Ratio % Glucose (65-100) mg/dL Calcium (8.4-10.2) mg/dL Total Creatine Kinase 54 (30-135) units/L CK-MB (CK-2) < 1.0 (0.0-4.0) ng/mL CK-MB (CK-2) Rel Index 1.8 (0-4) Troponin T < 0.010 (0.00-0.029) ng/mL 02/15/21 Range/Units 19:59 WBC (4.5-11.0) K/mm3 RBC (3.65-5.03) M/mm3 Hgb (10.1-14.3) gm/dl Hct (30.3-42.9) % MCV (79-97) fl MCH (28-32) pg MCHC (30-34) % RDW (13.2-15.2) % Plt Count (140-440) K/mm3 Lymph % (Auto) (13.4-35.0) % [place] % (Auto) (0.0-7.3) % Eos % (Auto) (0.0-4.3) % Baso % (Auto) (0.0-1.8) % Lymph # (Auto) (1.2-5.4) K/mm3 [place] # (Auto) (0.0-0.8) K/mm3 Eos # (Auto) (0.0-0.4) K/mm3 Baso # (Auto) (0.0-0.1) K/mm3 Seg Neutrophils % (40.0-70.0) % Seg Neutrophils # (1.8-7.7) K/mm3 PT (12.2-14.9) Sec. INR (0.87-1.13) APTT (24.2-36.6) Sec. Thrombin Time (15.1-19.6) Sec. Sodium 138 (137-145) mmol/L Potassium 3.9 (3.6-5.0) mmol/L Chloride 102.6 (98-107) mmol/L Carbon Dioxide 23 (22-30) mmol/L Anion Gap 16 mmol/L BUN 10 (7-17) mg/dL Creatinine 0.7 (0.6-1.2) mg/dL Estimated GFR > 60 ml/min BUN/Creatinine Ratio 14 % Glucose 100 (65-100) mg/dL Calcium 9.0 (8.4-10.2) mg/dL Total Creatine Kinase (30-135) units/L CK-MB (CK-2) (0.0-4.0) ng/mL CK-MB (CK-2) Rel Index (0-4) Troponin T (0.00-0.029) ng/mL - EKG Data -: EKG Interpreted by Ak EKG shows normal: sinus rhythm Rate: normal Interpretation: no acute changes - Radiology Data Radiology results: report reviewed - Medical Decision Making Patient is 45 years old female with no significant past medical history except for migraine. Patient brought to the emergency room by her daughter for evaluation of right face and tongue numbness that noticed this morning when she woke up. Patient stated that she went to bed last night around 11 AM in her normal status. Stroke protocol immediately initiated and patient moved to CT for stat CT brain without contrast. Stroke neurology immediately consulted and patient examined by Dr. Fallon. Patient is not a TPA candidate as the time of onset is more than 4.5hour. CT brain is negative for acute finding. CTA brain and neck unremarkable with no large vessels occlusion. Neurologist recommended patient to be admitted for s troke work-up. I discussed the patient with Dr. Barry, he agreed to admit the patient to medical service for further management. Critical Care Time: Yes Critical care time in (mins) excluding proc time.: 35 Critical care attestation.: If time is entered above; I have spent that time in minutes in the direct care of this critically ill patient, excluding procedure time. ED Disposition Clinical Impression: Numbness, TIA (transient ischemic attack) Disposition: ADMITTED INPATIENT Is pt being admited?: Yes Condition: Stable Referrals: IQRA DOYLE NP [Primary Care Provider] - 3-5 Days
[2021-02-15 20:25] LABS: Blood Urea Nitrogen 10 mg/dL (7-17); Hemolysis Index 14
[2021-02-15 20:49] LABS: BUN/Creatinine Ratio 14
--- NOTE | 2021-02-15 21:51 | Cat Scan Report ---
CT angio head INDICATION / CLINICAL INFORMATION: 45 years Female; stroke. TECHNIQUE: Thin cut axial images obtained through the head during IV bolus contrast administration. S agittal, coronal, and 3 plane MIP reconstructions performed by the technologist. NASCET type criteria used evaluate stenoses. Automated exposure control utilized for radiation reduction purposes. . COMPARISON: None available. FINDINGS: INTERNAL CAROTID ARTERIES: No significant narrowing appreciated. VERTEBROBASILAR SYSTEM: No significant narrowing appreciated. DISTAL BRANCHES: Distal branches of the anterior, middle, and posterior cerebral arteries are fairly symmetric in appearance and number. T1 signal left is hypoplastic. A majority of blood flow to the left posterior cerebral circulation is via the posterior communicating artery on the left. ANEURYSM: None identified. ADDITIONAL FINDINGS: Remainder of the surrounding soft tissues are grossly normal. IMPRESSION: No large vessel occlusion appreciated on this CTA of the head. Signer Name: Haile Howell MD, III Signed: 02/15/2021 9:47 PM Workstation Name: [email or web address] [id number]
--- NOTE | 2021-02-15 22:00 | Cat Scan Report ---
CT angio neck INDICATION / CLINICAL INFORMATION: 45 years Female; stroke. TECHNIQUE: Thin cut axial images obtained through the head during IV bolus contrast administration. S agittal, coronal, and 3 plane MIP reconstructions performed by the technologist. NASCET type criteria used evaluate stenoses. All CT scans at this location are performed using CT dose reduction for ALAR A by means of automated exposure control. . COMPARISON: None available. FINDINGS: ARCH: Normal aortic arch branching suggested. CAROTID ARTERIES: The visualized common and internal carotid arteries are widely patent. VERTEBRAL ARTERIES: Codominant vertebral system seen. No significant stenosis appreciated. ADDITIONAL FINDINGS: Mild disc space narrowing seen at C5-6. Mild uncinate hypertrophy at this level as well. IMPRESSION: No significant stenosis appreciated on this CTA of the neck. Signer Name: Haile Howell MD, III Signed: 02/15/2021 9:56 PM Workstation Name: [email or web address]
[2021-02-15] MEDS ORDERED: MAGNESIUM HYDROXIDE (MOM) ORAL LIQD UDC PO PRN (23:15)
[2021-02-15] MEDS ORDERED: ONDANSETRON 4 MG/2 ML INJ IV PRN ×2 (23:15)
[2021-02-15] MEDS ORDERED: ACETAMINOPHEN 325 MG TAB PO PRN ×2 (23:15)
[2021-02-15] MEDS ORDERED: MORPHINE 2 MG/1 ML INJ IV PRN (23:15)
[2021-02-15] MEDS ORDERED: MORPHINE 4 MG/1 ML INJ IV PRN (23:15)
[2021-02-15] MEDS ORDERED: METOCLOPRAMIDE 10 MG TAB PO PRN (23:15)
[2021-02-15] MEDS ORDERED: PROMETHAZINE 25 MG RECT SUPP PR PRN (23:15)
--- NOTE | 2021-02-15 23:28 | History and Physical Report ---
History of Present Illness Date of examination: 02/15/21 Date of admission: 02/15/2021 Chief complaint: Headache Facial numbness History of present illness: 45-year-old female with no significant past medical history except migraine presenting to the emergency room today for evaluation of right-sided facial and tongue numbness which started earlier this morning. Patient had a headache earlier in the day which has since resolved. She denies any blurry vision, no dizziness and no diaphoresis. Patient denies any fever or chills, no chest pain or shortness of breath, no nausea vomiting, no abdominal pain. Patient denies any facial droop, no difficulty swallowing, and no difficulty with her speech. She denies any unsteady gait. Upon arrival in the emergency room, symptoms had already resolved. She was evaluated by the teleneurologist who recommended a stroke work-up. Work-up so far in the emergency room including CT scan of the head, CTA head and neck has been unremarkable. Past History Past Medical History: migraines Past Surgical History: cholecystectomy, , Other Social history: no significant social history (Left ankle surgery) Family history: no significant family history Medications and Allergies Allergies Allergy/AdvReac Type Severity Reaction Status Date / Time No Known Allergies Allergy Verified 01/13/21 12:00 Home Medications Medication Instructions Recorded Confirmed Last Taken Type Ondansetron HCl [Zofran] 4 mg PO Q8H PRN #30 tablet 01/26/21 Unknown Rx metroNIDAZOLE [Flagyl] 500 mg PO Q8HR #12 tablet 01/26/21 Unknown Rx Review of Systems Constitutional: no fever, no chills Ears, nose, mouth and throat: no nasal congestion, no sore throat Cardiovascular: no chest pain, no palpitations Respiratory: no cough, no shortness of breath Gastrointestinal: no abdominal pain, no nausea, no vomiting, no diarrhea Genitourinary Female: no pelvic pain, no flank pain, no hematuria Musculoskeletal: no neck pain, no low back pain Integumentary: no rash, no pruritis Neurological: headaches, no confusion Psychiatric: no anxiety, no depression Endocrine: no polyphagia, no polydipsia, no polyuria Exam - Constitutional Vitals: Temp Pulse Resp BP Pulse Ox 98.6 F 71 18 128/68 98 02/15/21 19:10 02/15/21 21:31 02/15/21 21:31 02/15/21 20:45 02/15/21 21:31 General appearance: Present: no acute distress, well-nourished - EENT Eyes: Present: PERRL, EOM intact. Absent: scleral icterus ENT: hearing intact, clear oral mucosa, dentition normal - Neck Neck: Present: supple, normal ROM - Respiratory Respiratory effort: normal Respiratory: bilateral: CTA - Cardiovascular Rhythm: regular Heart Sounds: Present: S1 & S2. Absent: gallop, systolic murmur, diastolic murmur, rub, click - Extremities Extremities: no ischemia, pulses intact, pulses symmetrical, No edema, normal temperature, normal color, Full ROM Peripheral Pulses: within normal limits - Abdominal General gastrointestinal: Present: soft, non-tender, non-distended, normal bowel sounds. Absent: mass - Integumentary Integumentary: Present: clear, warm, dry, normal turgor. Absent: rash - Musculoskeletal Musculoskeletal: strength equal bilaterally - Psychiatric Psychiatric: appropriate mood/affect, intact judgment & insight, memory intact, cooperative - Neurologic Neurologic: CNII-XII intact, no focal deficits, moves all extremities HEART Score - HEART Score Troponin: Troponin T < 0.010 ng/mL (0.00-0.029) 02/15/21 16:46 Results - Labs CBC & Chem 7: 02/15/21 16:46 02/15/21 19:59 Labs: Abnormal lab results 02/15/21 02/15/21 Range/Units 16:46 16:46 Lymph % (Auto) 36.1 H (13.4-35.0) % INR 0.84 L (0.87-1.13) Assessment and Plan - Patient Problems (1) TIA (transient ischemic attack) Current Visit: Yes Status: Acute Plan to address problem: Patient to be monitored on telemetry. We will schedule for echocardiogram, MRI of the brain. Patient started on daily aspirin and statin. Will request a neurology evaluation. (2) DVT prophylaxis Current Visit: No Status: Acute Plan to address problem: Patient placed on subcutaneous heparin. (3) Full code status Current Visit: No Status: Acute Plan to address problem: Patient is full code.
[2021-02-16 06:00] LABS: INR 0.91 (0.87-1.13)
[2021-02-16 06:06] LABS: Blood Urea Nitrogen 11 mg/dL (7-17); Calcium 8.9 mg/dL (8.4-10.2); Chol/HDL Ratio 4.11 %; HDL Cholesterol 52 mg/dL (40-59); Hemolysis Index 2; LDL Cholesterol,Direct 140 mg/dL (50-130)
[2021-02-16 06:13] LABS: BUN/Creatinine Ratio 22
--- NOTE | 2021-02-16 09:32 | Progress Note ---
Assessment and Plan Assessment and plan: 45-year-old female with no significant past medical history except migraine presenting to the emergency room today for evaluation of right-sided facial and tongue numbness which started the morning TAKE OUT WAITER. Evaluation in the emergency room including CT scan of the head and CTA of head and neck were found to be negative. TIA 02/16/2021. Await neurology consultation, echocardiogram and MRI. PT evaluati on pending. Anticipate discharge later today or in a.m. History Interval history: No new issues overnight Hospitalist Physical - Constitutional Vitals: Temp Pulse Resp BP Pulse Ox 98.1 F 69 16 101/61 98 02/16/21 07:53 02/16/21 07:53 02/16/21 07:53 02/16/21 07:53 02/16/21 08:11 General appearance: Present: no acute distress, well-nourished - EENT Eyes: Present: PERRL, EOM intact ENT: hearing intact, clear oral mucosa, dentition normal - Neck Neck: Present: supple, normal ROM - Respiratory Respiratory effort: normal Respiratory: bilateral: CTA - Cardiovascular Rhythm: regular Heart Sounds: Present: S1 & S2. Absent: gallop, rub - Extremities Extremities: no ischemia, No edema, Full ROM - Abdominal General gastrointestinal: soft, non-tender, non-distended, normal bowel sounds - Integumentary Integumentary: Present: clear, warm, dry - Neurologic Neurologic: CNII-XII intact, moves all extremities HEART Score - HEART Score Troponin: Troponin T < 0.010 ng/mL (0.00-0.029) 02/15/21 16:46 Results - Labs CBC & Chem 7: 02/15/21 16:46 02/16/21 04:53 Labs: Laboratory Last Values WBC 9.4 K/mm3 (4.5-11.0) 02/15/21 16:46 RBC 4.67 M/mm3 (3.65-5.03) 02/15/21 16:46 Hgb 14.1 gm/dl (10.1-14.3) 02/15/21 16:46 Hct 42.2 % (30.3-42.9) 02/15/21 16:46 MCV 90 fl (79-97) 02/15/21 16:46 MCH 30 pg (28-32) 02/15/21 16:46 MCHC 33 % (30-34) 02/15/21 16:46 RDW 14.0 % (13.2-15.2) 02/15/21 16:46 Plt Count 375 K/mm3 (140-440) 02/15/21 16:46 Lymph % (Auto) 36.1 % (13.4-35.0) H 02/15/21 16:46 [place] % (Auto) 5.2 % (0.0-7.3) 02/15/21 16:46 Eos % (Auto) 3.1 % (0.0-4.3) 02/15/21 16:46 Baso % (Auto) 0.5 % (0.0-1.8) 02/15/21 16:46 Lymph # (Auto) 3.4 K/mm3 (1.2-5.4) 02/15/21 16:46 [place] # (Auto) 0.5 K/mm3 (0.0-0.8) 02/15/21 16:46 Eos # (Auto) 0.3 K/mm3 (0.0-0.4) 02/15/21 16:46 Baso # (Auto) 0.0 K/mm3 (0.0-0.1) 02/15/21 16:46 Seg Neutrophils % 55.1 % (40.0-70.0) 02/15/21 16:46 Seg Neutrophils # 5.2 K/mm3 (1.8-7.7) 02/15/21 16:46 PT 13.3 Sec. (12.2-14.9) 02/16/21 04:53 INR 0.91 (0.87-1.13) 02/16/21 04:53 APTT 26.4 Sec. (24.2-36.6) 02/15/21 16:46 Thrombin Time 15.9 Sec. (15.1-19.6) 02/15/21 16:46 Sodium 142 mmol/L (137-145) 02/16/21 04:53 Potassium 3.7 mmol/L (3.6-5.0) 02/16/21 04:53 Chloride 105.3 mmol/L (98-107) 02/16/21 04:53 Carbon Dioxide 23 mmol/L (22-30) 02/16/21 04:53 Anion Gap 17 mmol/L 02/16/21 04:53 BUN 11 mg/dL (7-17) 02/16/21 04:53 Creatinine 0.5 mg/dL (0.6-1.2) L 02/16/21 04:53 Estimated GFR > 60 ml/min 02/16/21 04:53 BUN/Creatinine Ratio 22 % 02/16/21 04:53 Glucose 96 mg/dL (65-100) 02/16/21 04:53 Calcium 8.9 mg/dL (8.4-10.2) 02/16/21 04:53 Total Creatine Kinase 54 units/L (30-135) 02/15/21 16:46 CK-MB (CK-2) < 1.0 ng/mL (0.0-4.0) 02/15/21 16:46 CK-MB (CK-2) Rel Index 1.8 (0-4) 02/15/21 16:46 Troponin T < 0.010 ng/mL (0.00-0.029) 02/15/21 16:46 Triglycerides 87 mg/dL (2-149) 02/16/21 04:53 Cholesterol 214 mg/dL (50-199) H 02/16/21 04:53 LDL Cholesterol Direct 140 mg/dL (50-130) H 02/16/21 04:53 HDL Cholesterol 52 mg/dL (40-59) 02/16/21 04:53 Cholesterol/HDL Ratio 4.11 % 02/16/21 04:53 Vicente/IV: Voiding Method Toilet Active Medications - Current Medications Current Medications: Generic Name Dose Route Start Last Admin Trade Name Freq PRN Reason Stop Dose Admin Acetaminophen 650 mg 02/15/21 23:15 Acetaminophen 325 Mg Tab PO Q4H PRN Pain MILD(1-3)/Fever >100.5/CRUZ Aspirin 325 mg 02/16/21 10:00 Aspirin 325 Mg Tab PO QDAY [facility] Atorvastatin Calcium 40 mg 02/16/21 22:00 Atorvastatin 40 Mg Tab PO QHS [facility] Bisacodyl 10 mg 02/15/21 23:15 Bisacodyl 10 Mg Rect Supp [place] QDAY PRN Constipation Magnesium Hydroxide 30 ml 02/15/21 23:15 Magnesium Hydroxide (Mom) Oral Liqd Udc PO Q4H PRN Constipation Metoclopramide HCl 10 mg 11/22/21 23:15 Metoclopramide 10 Mg Tab PO Q6H PRN Nausea And Vomiting Morphine Sulfate 2 mg 02/15/21 23:15 Morphine 2 Mg/1 Ml Inj IV Q4H PRN Pain, Moderate (4-6) Morphine Sulfate 4 mg 02/15/21 23:15 Morphine 4 Mg/1 Ml Inj IV Q4H PRN Pain , Severe (7-10) Ondansetron HCl 4 mg 02/15/21 23:15 Ondansetron 4 Mg/2 Ml Inj IV Q8H PRN Nausea And Vomiting Promethazine HCl 25 mg 02/15/21 23:15 Promethazine 25 Mg Rect Supp [place] Q6H PRN Nausea And Vomiting Sodium Chloride 10 ml 02/16/21 10:00 Sodium Chloride 0.9% 10 Ml Flush Syringe IV BID ROSARIO Sodium Chloride 10 ml 02/15/21 23:15 Sodium Chloride 0.9% 10 Ml Flush Syringe IV PRN PRN LINE FLUSH
[2021-02-16] MEDS ORDERED: ASPIRIN 325 MG TAB PO SCH (10:00)
--- NOTE | 2021-02-16 10:26 | Magnetic Resonance Report ---
MR brain wo con INDICATION / CLINICAL INFORMATION: stroke, rt facial numbness. TECHNIQUE: Multiplanar, multisequence MR images of the brain were obtained. COMPARISON: CT head from 02/15/2021, yesterday FINDINGS: INTRACRANIAL: No restricted diffusion. No hemorrhage. Ventricular caliber is normal. No extra-axial c ollection. No mass. No herniation. Major intracranial vascular flow voids are preserved. ORBITS: No significant abnormality of visualized orbits. SINUSES / MASTOIDS: No significant abnormality of visualized sinuses and mastoid air cells. ADDITIONAL FINDINGS: None. IMPRESSION: 1. No acute infarction. No significant intracranial abnormality. Signer Name: Ricardo Quevedo MD Signed: 02/16/2021 10:21 AM Workstation Name: [id number]
--- NOTE | 2021-02-16 13:59 | Vascular Lab Report ---
DUPLEX DOPPLER ULTRASOUND CAROTID, BILATERAL INDICATION / CLINICAL INFORMATION: stroke. COMPARISON: CTA neck 02/15/2021. FINDINGS: RIGHT CAROTID: No significant atherosclerotic plaque. - PLAQUE ESTIMATE (%): < 50% - CCA velocity: 107 cm/sec. - ICA peak systolic velocity: 96 cm/sec. - ICA/CCA PSV Ratio: 0.89 Right Vertebral Artery: Antegrade flow. LEFT CAROTID: Minimal calcified atherosclerotic plaque. - PLAQUE ESTIMATE (%): < 50% - CCA velocity: 92 cm/sec. - ICA peak systolic velocity: 103 cm/sec. - ICA/CCA PSV Ratio: 1.12 Left Vertebral Artery: Antegrade flow. IMPRESSION: 1. Right Internal Carotid Artery: Less than 50% diameter stenosis. 2. Left Internal Carotid Artery: Less than 50% diameter stenosis. Velocity criteria are extrapolated from diameter data as defined by the Society of Radiologists in Ul trasound Consensus Conference, Radiology 2003; 229;340-346. NO STENOSIS (NORMAL) - Plaque = none; ICA PSV < 125 cm/sec; ICA/CCA PSV Ratio < 2.0 <50% STENOSIS - Plaque < 50%; ICA PSV < 125 cm/sec; ICA/CCA PSV Ratio < 2.0 50-69% STENOSIS - Plaque > 50%; ICA PSV = 125-230 cm/sec; ICA/CCA PSV Ratio = 2.0-4.0 >70% BUT <100% STENOSIS - Plaque > 50%; ICA PSV > 230 cm/sec; ICA/CCA PSV Ratio > 4.0 NEAR OCCLUSION - Plaque = visible lumen; ICA PSV = high/low/none; ICA/CCA PSV Ratio = variable TOTAL OCCLUSION - Plaque = no lumen; ICA PSV = none; ICA/CCA PSV Ratio = N/A Scribed by: Nely Hess RDMS, RVT Scribed: 02/16/2021 12:53 PM I have reviewed the images, agree with this report, and edited this report as needed. Signer Name: Minda Rousseau MD Signed: 02/16/2021 1:55 PM Workstation Name: [id number]
--- NOTE | 2021-02-16 18:35 | Electrocardiograph Report ---
[facility] Test Date: 2021-02-15 Test Time: 17:17:24 Pat Name: MOUNA ROCHE Department: Room: A452 1 Gender: F [employer]ight Truck Driver: FLORES : 1975 Requested By: MONICA FOX Order Number: [id number] Reading MD: iDrk Frankel Measurements Intervals [place] Rate: 60 P: 55 GA: 165 QRS: 84 QRSD: 96 T: 52 QT: 426 QTc: 427 Interpretive Statements Sinus rhythm No previous ECG available for comparison Electronically Signed On 02-16-2021 18:34:56 EST by Dirk Frankel
--- NOTE | 2021-02-16 23:33 | Consultation ---
History of Present Illness Consult date: 02/16/21 Reason for Consult: TIA Chief complaint: Headache with visual blurring and facial numbness History of present illness: 45 yo female with migraine d/o who presents with a 5-hour episode of right-sided throbbing headache (typical of her migraine attacks in the past) followed by right-sided visual blurring with right-sided facial numbness. She currently notes she is back to her baseline. She used to take a medication in the past to prevent migraines but is no longer on it. Past History Past Medical History: migraines Past Surgical History: cholecystectomy, , Other Social history: no significant social history (Left ankle surgery) Family history: no significant family history Medications and Allergies Allergies Allergy/AdvReac Type Severity Reaction Status Date / Time No Known Allergies Allergy Verified 02/16/21 11:58 Home Medications Medication Instructions Recorded Confirmed Last Taken Type No Known Home Medications [No 02/16/21 02/16/21 Unknown History Reported Home Medications] Active Meds: Active Medications Acetaminophen (Acetaminophen 325 Mg Tab) 650 mg PO Q4H PRN PRN Reason: Pain MILD(1-3)/Fever >100.5/CRUZ Last Admin: 02/16/21 21:17 Dose: 650 mg Documented by: Aspirin (Aspirin 325 Mg Tab) 325 mg PO QDAY [facility] Last Admin: 02/16/21 10:18 Dose: 325 mg Documented by: Atorvastatin Calcium (Atorvastatin 40 Mg Tab) 40 mg PO QHS [facility] Last Admin: 02/16/21 21:16 Dose: 40 mg Documented by: Bisacodyl (Bisacodyl 10 Mg Rect Supp) 10 mg [place] QDAY PRN PRN Reason: Constipation Magnesium Hydroxide (Magnesium Hydroxide (Mom) Oral Liqd Udc) 30 ml PO Q4H PRN PRN Reason: Constipation Metoclopramide HCl (Metoclopramide 10 Mg Tab) 10 mg PO Q6H PRN PRN Reason: Nausea And Vomiting Morphine Sulfate (Morphine 2 Mg/1 Ml Inj) 2 mg IV Q4H PRN PRN Reason: Pain, Moderate (4-6) Last Admin: 02/16/21 15:11 Dose: 2 mg Documented by: Morphine Sulfate (Morphine 4 Mg/1 Ml Inj) 4 mg IV Q4H PRN PRN Reason: Pain , Severe (7-10) Ondansetron HCl (Ondansetron 4 Mg/2 Ml Inj) 4 mg IV Q8H PRN PRN Reason: Nausea And Vomiting Promethazine HCl (Promethazine 25 Mg Rect Supp) 25 mg [place] Q6H PRN PRN Reason: Nausea And Vomiting Sodium Chloride (Sodium Chloride 0.9% 10 Ml Flush Syringe) 10 ml IV BID ROSARIO Last Admin: 02/16/21 21:18 Dose: 10 ml Documented by: Sodium Chloride (Sodium Chloride 0.9% 10 Ml Flush Syringe) 10 ml IV PRN PRN PRN Reason: LINE FLUSH Review of Systems All systems: negative Physical Examination - Vital Signs Vital Signs: Vital Signs Temp Pulse Resp BP Pulse Ox 98.4 F 77 16 128/80 97 02/15/21 16:17 02/15/21 16:17 02/15/21 16:17 02/15/21 16:17 02/15/21 16:17 - Physical Exam Narrative exam: Gen: nad, well-nourished; Head: normocephalic; Eyes: no gaze deviation; no ptosis; ENT: normal vocalization; CVS: warm and well-perfused; Pulm: no respiratory distress; GI: appears non-distended; Ext: no cyanosis appreciated at distal extremities; Skin: no acute rash appreciated at distal extremities; Heme: no pathologic bruising appreciated at distal extremities; Neuro: alert, oriented to name, age, month, year, no dysarthria, no aphasia, CN 2 - PERRL, visual torres grossly intact, CN 3, 4, 6 - EOMI, CN 5 - facial sensation symmetric to light touch, CN 7 - facial movement symmetric, CN 8 - hearing grossly intact, CN 9, 10 - uvula midline, CN 11 - shrug symmetric, CN 12 - tongue midline; Motor - at least 4/5 in all exts; Sensory - light touch symm etric, Cerebellar - fnf /hts intact, Gait - deferred secondary to fall risk; NIHSS (1a.) Level of Consciousness:0 (1b.) LOC Questions:0 (1c.) LOC Commands:0 (2.) Best Gaze:0 (3.) Visual:0 (4.) Facial Palsy:0 (5a.) Motor Arm, Left:0 (5b.) Motor Arm, Right:0 (6a.) Motor Leg, Left:0 (6b.) Motor Leg, Right:0 (7.) Limb Ataxia:0 (8.) Sensory:0 (9.) Best Language:0 (10.) Dysarthria:0 (11.) Extinction and Inattention:0 NIHSS Total Score: 0 Results - Laboratory Findings CBC and BMP: 02/15/21 16:46 02/16/21 04:53 Abnormal Lab Findings: Abnormal Labs 02/15/21 02/15/21 02/16/21 16:46 16:46 04:53 Lymph % (Auto) 36.1 H INR 0.84 L Creatinine 0.5 L Cholesterol 214 H LDL Cholesterol Direct 140 H Assessment and Plan 45 yo female with migraine d/o who presents with a complicated migraine in the setting of a workup with mri brain and cta head/neck that are unremarkable. 1. Complicated Migraine - pt nots 3 migraine attacks per month at least, sometimes more; recommend topamax 25 mg po qhs x 7 days and then increased to 50 mg po qhs; followup with a headache specialist in 4 weeks. 2. TIA - less likely in the setting of no known vascular risk factors and mri/cta that are unremarkable. 3. Dyslipidemia - consider diet/exercise and/or statin therapy; per primary team. 4. No further acute neurologic workup indicated at present. Neurology will signoff. Henrry Taylor MD Neurology [id number]
--- NOTE | 2021-02-17 07:59 | Discharge Summary ---
Providers - Providers Date of Admission: 02/16/21 00:24 Date of discharge: 02/17/21 Attending physician: BLAZE GALLAGHER 02/15/21 23:15 Consult to Physician [CONS] Routine Comment: Consulting Provider: DEANA MURDOCK Physician Instructions: Reason For Exam: TIA 02/15/21 23:17 Consult to Dietitian/Nutrition [CONS] Routine Physician Instructions: Reason For Exam: Reason for Consult: Nutrition Recommendations Reason for Consult: Diet education Occupational Therapy Evaluate and Treat [CONS] Routine Comment: Reason For Exam: Neuro deficits Physical Therapy Evaluation and Treat [CONS] Routine Comment: Reason For Exam: Neuro deficits Primary care physician: IQRA DOYLE Hospitalization Reason for admission: Headache with visual blurring and facial numbness Condition: Stable Hospital course: 5 yo female with migraine d/o who presents with a 5-hour episode of right-sided throbbing headache (typical of her migraine attacks in the past) followed by right-sided visual blurring with right-sided facial numbness. She currently notes she is back to her baseline. She used to take a medication in the past to prevent migraines but is no longer on it. The patient underwent MRI brain and CTA of head and neck which were found to be unremarkable. The admitting diagnosis was TIA. However, patient seen by neurology and felt that the TIA was less likely in the setting of no known vascular risk factors and mri/cta that are unremarkable. Patient with discharge diagnosis of complicated migraine. Neurology recommends topamax 25 mg po qhs x 7 days and then increased to 50 mg po qhs; followup with a headache specialist in 4 weeks. Dedicated discharge time 35 minutes Disposition: 01 HOME / SELF CARE / HOMELESS Final Discharge Diagnosis (Prints w/discharge instructions): Complicated migraine, dyslipidemia Core Measure Documentation - Palliative Care Palliative Care/ Comfort Measures: Not Applicable - Core Measures Any of the following diagnoses?: none Exam - Constitutional Vitals: Temp Pulse Resp BP Pulse Ox 97.7 F 65 16 112/51 99 02/17/21 03:45 02/17/21 03:45 02/17/21 03:45 02/17/21 03:45 02/17/21 03:45 General appearance: Present: no acute distress, well-nourished - EENT Eyes: Present: PERRL ENT: hearing intact, clear oral mucosa - Neck Neck: Present: supple, normal ROM - Respiratory Respiratory effort: normal Respiratory: bilateral: CTA - Cardiovascular Heart Sounds: Present: S1 & S2. Absent: rub, click - Extremities Extremities: pulses symmetrical, No edema Peripheral Pulses: within normal limits - Abdominal General gastrointestinal: Present: soft, non-tender, non-distended, normal bowel sounds Female genitourinary: Present: normal - Integumentary Integumentary: Present: clear, warm, dry - Musculoskeletal Musculoskeletal: gait normal, strength equal bilaterally - Psychiatric Psychiatric: appropriate mood/affect, intact judgment & insight - Neurologic Neurologic: CNII-XII intact, moves all extremities Plan Activity: advance as tolerated Weight Bearing Status: Weight Bear as Tolerated Diet: regular Follow up with: IQRA DOYLE NP [Primary Care Provider] - 3-5 Days Prescriptions: AtorvaSTATin [Lipitor] 40 mg PO QHS #30 tablet Topiramate [Topamax] 25 mg PO QHS #7 tablet Topiramate [Topamax] 50 mg PO QHS #30 tablet
[2021-02-17 08:30] VITALS: BP 107/58
== END 2021-02-17 09:45 | disposition home or self-care (01) ==
LOC: ED 16:11 → 4A 02-16 00:24
PROVIDERS: ADMIT Internal Medicine Geriatric Medicine; ATTEND Hospitalist
DX: G45.9 Transient cerebral ischemic attack, unspecified (principal); R20.0 Anesthesia of skin; G43.909 Migraine, unspecified, not intractable, without status migrainosus; E78.5 Hyperlipidemia, unspecified; R29.700 NIHSS score 0; Z90.49 Acquired absence of other specified parts of digestive tract; Z98.891 History of uterine scar from previous surgery; Z79.899 Other long term (current) drug therapy; Z98.890 Other specified postprocedural states; Z79.82 Long term (current) use of aspirin
CPT/HCPCS: 36415; 70450; 70496; 70498; 70551; 80048; 80061; 82550; 82553; 82962; 84484; 85025; 85610; 85670; 85730; 93005; 93306; 93880; 96374; 97161; 97165; 97535; 99291; G0378; J2270; Q9967